=== PATIENT | female | born 1995 | race Two or more races ===

== ENCOUNTER 2024-08-05 09:20 | Outpatient (REF) | payer MEDICAID, SELFPAY | END 2024-08-05 09:21 | disposition home or self-care (01) | LOC: HO.HHCL 09:20 | PROVIDERS: PCP Family Medicine; Visit Provider Family Medicine | DX: Z13.89 Encounter for screening for other disorder (principal) ==

== ENCOUNTER 2024-08-05 09:29 | Outpatient (REF) | payer MEDICAID, SELFPAY ==
[2024-08-05 11:46] LABS: Hematocrit 39.1 % (37.0-47.0); Hemoglobin 12.5 g/dl (12.0-16.0); Mean Corpuscular Hemoglobin 27.8 pg (27.0-33.0); Mean Corpuscular Volume 86.9 fL (80.0-98.0); Mean Platelet Volume 10.8 fL (9.4-12.3); Platelet Count 324 X10*3/uL (160-400); Red Cell Distribution Width 13.9 % (11.0-16.0); White Blood Count 10.1 X10*3/uL (4.8-10.8)
[2024-08-05 12:08] LABS: Estimated Average Glucose 105 mg/dL; Hemoglobin A1c % 5.3 % (<6.0)
[2024-08-05 12:24] LABS: Alanine Aminotransferase 26 U/L (0-31); Albumin Level 4.1 g/dL (3.5-5.0); Alkaline Phosphatase 74 U/L (39-117); Anion Gap 9 (12-20); Aspartate Amino Transferase 24 U/L (5-31); Bilirubin Direct 0.1 mg/dL (0.0-0.5); Bilirubin Total 0.3 mg/dL (0.0-1.0); Blood Urea Nitrogen 10 mg/dL (9-16); Calcium 9.5 mg/dL (8.4-10.2); Carbon Dioxide 29 mmol/L (22-29); Chloride 106 mmol/L (96-108); Cholesterol 160 mg/dL (<200); Estimated Glomerular Filt Rate > 60; Glucose Random 88 mg/dL (60-115); HDL Cholesterol 40 mg/dL (>40); LDL Cholesterol Calculated 106 mg/dL (<100); Sodium 140 mmol/L (135-145); Total Protein 7.7 g/dL (6.5-8.0); Triglycerides 70 mg/dL (<150)
[2024-08-05 12:32] LABS: HBS Num1 675.01 mIU/mL (0-7.99); HBc Num1 0.14 S/CO (0.00-0.79); HBsAGNum1 0.37 S/CO (0.00-0.99); HIV AB/AG Nonreactive (Nonreactive); HIV Num 1 0.07 S/CO (0.00-0.99); Hepatitis B Core Antibody Nonreactive (Nonreactive); Hepatitis B Surface Antigen Negative (Negative); ~HepC Num1 0.19 S/CO (0.00-0.79); ~Hepatitis B Surface Antibody REACTIVE (Nonreactive); ~Hepatitis C Antibody Nonreactive (Nonreactive)
[2024-08-05 12:44] LABS: Free T4 (Free Thyroxine) 0.89 ng/dL (0.71-1.85); Thyroid Stimulating Hormone 1.18 uIU/mL (0.32-4.0); Vitamin D 25-OH Total 25.9 ng/mL (>30)
[2024-08-05 13:54] LABS: CT PCR NOT DETECTED (Not Detect.); NG PCR NOT DETECTED (Not Detect.)
[2024-08-06 05:28] LABS: Hepatitis A Antibody IgG REACTIVE (Nonreactive); ~Hepatitis A Antibody IgG 8.73 S/CO (0.00-0.99)
[2024-08-06 11:23] LABS: Mumps Virus IgG Antibody <9.00 AU/mL
[2024-08-06 14:28] LABS: RPR Rapid Plasma Reagin NON-REACTIVE (NON-REACTIVE)
[2024-08-06 16:09] LABS: Varicella IgG Antibody 1.28 S/CO
[2024-08-08 09:12] LABS: TS Negative Control Passed; TS Panel A 0; TS Panel B 1; TS Positive Control Passed; TSpotTB Negative (Negative)
== END 2024-08-05 09:30 | disposition home or self-care (01) ==
LOC: HO.HHCL 09:29
PROVIDERS: Visit Provider Family Medicine
DX: Z00.00 Encounter for general adult medical examination without abnormal findings (principal); Z68.41 Body mass index [BMI] 40.0-44.9, adult; E28.2 Polycystic ovarian syndrome
CPT/HCPCS: 80048; 80061; 80076; 82306; 83036; 84439; 84443; 85027; 86481; 86592; 86704; 86706; 86708; 86735; 86762; 86765; 86787; 86803; 87340; 87389; 87491; 87591

== ENCOUNTER 2024-11-05 08:19 | Outpatient (AMB) | payer OTHER, SELFPAY ==
--- OUTSIDE RECORDS SUMMARY | 2024-08-27 09:30 | XMS_ITS ---
Author Organization [facility] Address [address] [place] [phone] Care Team Providers Care Speech Correction Assistant Name Role Phone NO, PCP Primary Care Provider SHS, CHW Unavailable [phone] SHS, Nursing Unavailable [phone] REASON FOR VISIT Phone: Intake Encounters Encounter Location Date Provider Diagnosis [address] [address] 08/27/2024 Nursing [facility] Plan Of Treatment No Information Progress Notes * Corrina BIGGS y CDOB:1995 (29 yo F)Acc No.[id number]:08/27/2024 Progress Notes Patient: Kathy Indu SANDHU Provider: Mohsen LACEY :1995 A ge:28 Y S ex:Female Date:08/27/2024 Address:[address] [place] [address] Nemesio Johnston [place]-[id number] Pcp:PCP NO Subjective: * Chief Complaints: * 1 . Phone: Intake. * Medical History: Objective: * Vitals: Assessment: Plan: * Treatment: * Images: Billing Information: * Visit Code: * Procedure Codes: * Electronic signature of Bk [facility] on 11/05/2024 at 08:43 AM EDT Sign off status: Pending * Provider: Mohsen coulter [facility] Date: 08/27/2024 Generated for Zach capps/Gabe/eTransmmeron on: 0 11/05/2024 08:43 AM EDT
--- OUTSIDE RECORDS SUMMARY | 2024-11-05 08:44 | XMS_ITS | Clinical Summary ---
Author Organization [employer] Address [address] [place] [address] Care Team Providers Care Security Assurance Specialist Name Role Phone Marleni Hunt DO Primary Care Provider Allergies No known active allergies Medications metFORMIN XR (Glucophage-XR) 500 MG 24 hr tablet Take 1 tablet (500 mg) by mouth with evening meal. Do not crush, chew, or split. 90 tablet 3 08/02/2024 Active multivitamin () 27-0.8 MG tablet Take 1 tablet by mouth Once per day. 90 tablet 3 08/02/2024 Active cholecalciferol (Vitamin D-3) 50 MCG (2000 UT) capsule Take 1 capsule (50 mcg) by mouth Once per day. 90 capsule 3 08/10/2024 Active Active Problems Problem Noted Date Diagnosed Date Polycystic ovarian syndrome 08/02/2024 BMI 40.0-44.9, adult 08/02/2024 Encounters Date Type Department Care Team Description 08/06/2024 Refill [facility] [address] [place] [address] Marleni Hunt DO from Last 3 Months Family History Medical History Relation Name Comments Hypertension Father Muscle cancer Father Asthma Maternal Grandmother No Known Problems Mother Relation Name Status Comments Father Maternal Grandmother Mother Social History Tobacco Use Types Packs/Day Years Used Date Smoking Tobacco: Never Smokeless Tobacco: Never Tobacco Cessation:Counseling Given: Not Answered Alcohol Use Standard Drinks/Week Comments Never 0 (1 standard drink = 0.6 oz pur e alcohol) Depression Answer Date Recorded Patient Health Questionnaire-9 Score 3 08/02/2024 Patient Health Questionnaire-9 Score 3 08/02/2024 Last PHQ-9: Questionnaire Data Not on file 0 08/02/2024 Housing Stability Answer Date Recorded What is your housing situation today? I have housing today, but I am worried about losing housing in the future 08/02/[address] you li ve. Do you have problems with any of the following? None of the above 08/02/2024 Food Insecurity Answer Date Recorded Within the past 12 months, y ou worried that your food would run out before you got money to buy more: Sometimes True 2024 Within the past 12 months,th e food you bought just didn't last and you didn't have enough money to get more: Never True 08/02/2024 Transportation Answer Date Recorded In the past 12 months, has l ack of transportation kept you from medical appts, meetings, work or from getting things needed for daily living? No 07/21/2024 Utilities Answer Date Recorded In the past 12 months, has t he electric, gas, oil or water company threatened to shut off services in your home? No 07/21/2024 Depression Answer Date Recorded Patient Health Questionnaire-2 Score 0 08/02/2024 Internet Access Answer Date Recorded Internet Access Q1 Yes 07/21/2024 Internet Access Q2 Not on file 07/21/2024 Comments No Sex and Gender Information Value Date Recorded Sex Assigned at Unknown 08/02/2024 8:36 AM EDT Legal Sex Female 2:04 PM EDT Gender Identity Choose not to disclose 8:36 AM EDT Sexual Orientation Don't know 08/02/2024 8: 36 AM EDT Last Filed Vital Signs Vital Sign Reading Time Taken Comments Blood Pressure 118/70 08/02/2024 11:39 AM EDT Pulse 88 08/02/2024 11:39 AM EDT Temperature 36.8 C (98.3 F) 08/02/2024 11:39 AM EDT Respiratory Rate 19 08/02/2024 11:39 AM EDT Oxygen Saturation 99% 08/02/2024 11:39 AM EDT Inhaled Oxygen Concentration - - Weight 110 kg (242 lb) 08/02/2024 11:39 AM EDT Height 162.6 cm (5' 4 ) 08/02/2024 11:39 AM EDT Body Mass Index 41.54 08/02/2024 11:39 AM EDT Plan of Treatment Health Maintenance Due Date Last Done Comments Alcohol/Substance Use Screening 2008 Family Planning (PISQ) 09/18/2011 HPV Vaccines (1 - 3-dose series) 09/18/2011 DTaP/Tdap/Td Vaccines (1 - Tdap) 09/18/2015 Hepatitis B Vaccines (1 of 3 - 19+ 3-dose series) 09/18/2015 Pap Smear 2017 COVID-19 Vaccine (1 - 2023-2 5 season) 2024 Influenza Vaccine (#1) 2024 Depression Screening 08/02/2025 08/02/2024, 08/02/2024 Disability Screening 08/02/2025 08/02/2024 SDOH Screening 08/02/2025 08/02/2024 Tobacco Screening 08/02/2025 08/02/2024 Lipid Panel 08/05/2029 08/05/2024 Zoster Vaccines (1 of 2) 2046 RSV Patients and Patients Aged 60 years or older (1 - 1-dose 75+ series) 09/18/2071 HIV Screening Completed 08/05/2024 Hepatitis C Screening Completed 08/05/2024 HIB Vaccines Aged Out No longer eligi ble based on patient's age to complete this topic Hepatitis A Vaccines Aged Out No long er eligible based on patient's age to complete this topic IPV Vaccines Aged Out No longer eligi ble based on patient's age to complete this topic Meningococcal B Vaccine Aged Out No l onger eligible based on patient's age to complete this topic Meningococcal Vaccine Aged Out No dennys jewell eligible based on patient's age to complete this topic Pneumococcal Vaccine: Pediatrics (0 to 5 Years) and At-Risk Patients (6 to 49) Years Aged Out No longer eligible b ased on patient's age to complete this topic RSV under 20 months Aged Out No longe r eligible based on patient's age to complete this topic Rotavirus Vaccines Aged Out No longer eligible based on patient's age to complete this topic Procedures Procedure Name Priority Date/Time Associated Diagnosis Comments T-SPOT(R).TB Routine 08/05/2024 9:33 AM EDT Routine history and physical examination of adult Polycystic ovarian syndrome BMI 40.0-44.9, adult ([facility]) HEPATITIS B CORE AB TOTAL Routine 08/05/2024 9:33 AM EDT Routine history and physical examination of adult Polycystic ovarian syndrome BMI 40.0-44.9, adult (CMS/HCC) HEPATITIS A ANTIBODY, TOTAL Routine 08/05/2024 9:33 AM EDT Routine history and physical examination of adult Polycystic ovarian syndrome BMI 40.0-44.9, adult (CMS/HCC) HEPATITIS B SURFACE ANTIBODY, QUALITATIVE Routine 08/05/2024 9:33 AM EDT Routine history and physical examination of adult Polycystic ovarian syndrome BMI 40.0-44.9, adult (CMS/HCC) RPR (MONITOR) W/REFL TITER Routine 08/05/2024 9:33 AM EDT Routine history and physical examination of adult Polycystic ovarian syndrome BMI 40.0-44.9, adult (CMS/HCC) HEPATITIS C AB W/REFL TO HCV RNA, QN, PCR Routine 08/05/2024 9:33 AM EDT Routine history and physical examination of adult Polycystic ovarian syndrome BMI 40.0-44.9, adult (CMS/HCC) HIV 1/2 ANTIGEN/ANTIBODY, FOURTH GENERATION W/RFL Routine 08/05/2024 9:33 AM EDT Routine history and physical examination of adult Polycystic ovarian syndrome BMI 40.0-44.9, adult (CMS/HCC) HEPATITIS B SURFACE ANTIGEN, EIA Routine 08/05/2024 9:33 AM EDT Routine history and physical examination of adult Polycystic ovarian syndrome BMI 40.0-44.9, adult (CMS/HCC) MEASLES, MUMPS, AND RUBELLA (MMR) AB (IGG) PANEL, IMMUNE STATUS Routine 08/05/2024 9:33 AM EDT Routine history and physical examination of adult Polycystic ovarian syndrome BMI 40.0-44.9, adult (CMS/HCC) VARICELLA ZOSTER ANTIBODY, IGG Routine 08/05/2024 9:33 AM EDT Routine history and physical examination of adult Polycystic ovarian syndrome BMI 40.0-44.9, adult (CMS/[facility]) BASIC METABOLIC PANEL Routine 08/05/2024 9:33 AM EDT Routine history and physical examination of adult Polycystic ovarian syndrome BMI 40.0-44.9, adult (CMS/HCC) CBC Routine 08/05/2024 9:33 AM EDT Routine history and physical examination of adult Polycystic ovarian syndrome BMI 40.0-44.9, adult (CMS/HCC) HEMOGLOBIN A1C Routine 08/05/2024 9:33 AM EDT Routine history and physical examination of adult Polycystic ovarian syndrome BMI 40.0-44.9, adult (CMS/[facility]) HEPATIC FUNCTION PANEL Routine 08/05/2024 9:33 AM EDT Routine history and physical examination of adult Polycystic ovarian syndrome BMI 40.0-44.9, adult (CMS/[facility]) VITAMIN D,25-OH,TOTAL,IA Routine 08/05/2024 9:33 AM EDT Routine history and physical examination of adult Polycystic ovarian syndrome BMI 40.0-44.9, adult ([facility]) TSH Routine 08/05/2024 9:33 AM EDT Routine history and physical examination of adult Polycystic ovarian syndrome BMI 40.0-44.9, adult (CMS/[facility]) LIPID PANEL, STANDARD Routine 08/05/2024 9:33 AM EDT Routine history and physical examination of adult Polycystic ovarian syndrome BMI 40.0-44.9, adult (CMS/HCC) T4, FREE Routine 08/05/2024 9:33 AM EDT Routine history and physical examination of adult Polycystic ovarian syndrome BMI 40.0-44.9, adult (CMS/HCC) CHLAMYDIA/N. GONORRHOEAE RNA, TMA, UROGENITAL Routine 08/05/2024 9:33 AM EDT Routine history and physical examination of adult Polycystic ovarian syndrome BMI 40.0-44.9, adult ([facility]) from Last 3 Months Results * (ABNORMAL) Vitamin D, 25-Hydroxy, Total, Immunoassay (08/05/2024 9:33 AM EDT) Vitamin D 25-OH Total 25.9(L) >30 ng/mL [facility] Comment: Health Based Reference Values*< 20 ng/mL Xebgjypur33-96 ng/mL Insufficient> 30 ng/mL Sufficient*Jessica BLANCO. N Engl J Med. 2007;357:266-280There is no well-established upper level of normal vitamin Dlevels. Some laboratories use 50 ng/mL as an upper limit ofnormal. However, toxicity is patient-dependent and may occurat any level. Careful correlation with the patient'spresentation is necessary and, if there is concern forvitamin D toxicity, treatment should be consideredirrespective of the serum level.Care must be taken in interpreting Vitamin D results fromdifferent laboratories and methodologies. Published datademonstrated that results from patients undergoinghemodialysis may show a negative bias when tested withvarious automated 25-OH vitamin D assays when compared toLC-MS/MS.When testing samples from patients whose predominant form ofVitamin D is Vitamin D2, such as patients receiving VitaminD2 supplementation, results that are subtherapeutic shouldbe confirmed with another method such as LC-MS/MS. Blood Venous blood specimen / Unknown 08/05/2024 9:33 AM EDT 08/05/2024 11:32 AM EDT us Marleni Hunt DO LAB BLOOD ORDERABLES Final R esult [facility] [address], [place] [phone] * T-SPOT??.TB (08/05/2024 9:33 AM EDT) T Spot TB Negative Negative [facility] Comment:A negative test resu lt does not exclude the possibilityof exposure to or infection with Mycobacteriumtuberculosis (M. tuberculosis). Patients with recentexposure to TB infected individuals exhibiting anegative T-SPOT.TB result should be considered forretesting within 6 weeks or if other relevant clinicalsymptoms indicate. Results from T-SPOT.TB testing mustbe used in conjunction with each individual'sepidemiological history, current medical status,and results of other diagnostic evaluations.The T-SPOT.TB test is qualitative and results arereported as positive, borderline, or negative, giventhat the test controls perform as expected. In linewith the Centers for Disease Control and Prevention's2010 recommendation to report quantitative measurementsalongside the qualitative result, the laboratoryprovides spot counts for informational purposes only.The T-SPOT.TB test should not be interpreted as aquantitative test. TS PANEL A 0 [facility] TS PANEL B 1 [facility] Negative Control Passed [facility] Positive Control Passed [facility] Comment:For additional infor rajeev, please refer tohttp://education.GLAMSQUAD/faq/JAU926(This link is being provided for informational/educational purposes only.)THIS TEST WAS PERFORMED AT:[employer] [id number] [place] [phone] GARDUNO MD,PHD 08/05/2024 9:33 AM EDT 08/05/2024 11:32 AM EDT Marleni Hunt DO LAB BLOOD ORDERABLES Final R esult [facility] [address] [place] [phone] * (ABNORMAL) Measles, Mumps, and Rubella (MMR) Antibodies??(IgG) Panel, Immune Status (08/05/2024 9:33 AM EDT) [facility] Mumps Virus IgG Antibody <9.00(A) AU/mL [facility] Comment:AU/mL Interpretation ------- <9.00 Not consistent with immunity9.00-10.99 Equivocal>10.99 Consistent with immunityThe presence of mumps IgG antibody suggests immunizationor past or current infection with mumps virus. Rubella IgG Antibody 18.60 Index [facility] Comment:Index Interpretation ----- <0.90 Not consistent with immunity 0.90-0.99 Equivocal > or = 1.00 Consistent with immunityThe presence of rubella IgG antibody suggestsimmunization or past or current infection withrubella virus.THIS TEST WAS PERFORMED AT:[employer] [place] [phone] PETIT MD Rubeola IgG (Measles) 90.80 AU/mL [facility] Comment:AU/mL Interpretation ----- <13.50 Not consistent with wawlgmwb69.50-16.49 Equivocal>16.49 Consistent with immunityThe presence of measles IgG suggests immunization orpast or current infection with measles virus.For additional information, please refer tohttp://education.[employer]andy/faq/LCK519(This link is being provided for informational/educational purposes only.) Blood Venous blood specimen / Unknown 08/05/2024 9:33 AM EDT 08/05/2024 11:27 AM EDT Marleni Hunt DO LAB BLOOD ORDERABLES Final R esult [facility] [address] [place] [phone] * Hepatitis C Antibody with Reflex to HCV, RNA, Quantitative, Real-Time PCR (08/05/2024 9:33 AM EDT) Hepatitis C Antibody Nonreactive Nonreactive [facility] Comment:Antibodies to HCV no t detected; does not exclude early acuteHCV infection. Blood Venous blood specimen / Unknown 08/05/2024 9:33 AM EDT 08/05/2024 11:27 AM EDT Marleni Hunt [employer] LAB BLOOD ORDERABLES Final R esult Performing Organization Address City/[facility]/ZIP Co de Phone Number [facility] [address] [place] [phone] * Hepatitis A Antibody, Total (08/05/2024 9:33 AM EDT) Hepatitis A Antibody IgG REACTIVE Nonreactive [facility] Comment:The presence of IgG anti-HAV implies past HAV infection(recent or distant) or vaccination against HAV. Blood Venous blood specimen / Unknown 08/05/2024 9:33 AM EDT 08/05/2024 11:27 AM EDT Marleni Hunt [employer] LAB BLOOD ORDERABLES Final R esult Performing Organization Address [facility] Co de Phone Number [facility] [address] [place] [phone] * Chlamydia/N. Gonorrhoeae RNA, TMA, Urogenitial (08/05/2024 9:33 AM EDT) CT PCR NOT DETECTED Not Detect. [facility] Comment:A not detected test result does not exclude the possibilityof infection because test results can be affected byimproper specimen collection, concurrent antibiotic therapy,or the number of organisms in the specimen which may bebelow the sensitivity of the test. As with many diagnostictests, results from the Xpert CT/NG assay should beinterpreted in conjunction with other laboratory andclinical data available to the clinician.Xpert CT/NG performance has not been evaluated in patientsless than 14 years of age. The assay should not be used forthe evaluationof suspected sexual abuse or for other medico-legalindications. Additional testing is recommended in anycircumstance when false positive or false negative resultscould lead to adverse medical, social or psychologicalconsequences. NG PCR NOT DETECTED Not Detect. [facility] Comment:A not detected test result does not exclude the possibilityof infection because test results can be affected byimproper specimen collection, concurrent antibiotic therapy,or the number of organisms in the specimen which may bebelow the sensitivity of the test. As with many diagnostictests, results from the Xpert CT/NG assay should beinterpreted in conjunction with other laboratory andclinical data available to the clinician.Xpert CT/NG performance has not been evaluated in patientsless than 14 years of age. The assay should not be used forthe evaluationof suspected sexual abuse or for other medico-legalindications. Additional testing is recommended in anycircumstance when false positive or false negative resultscould lead to adverse medical, social or psychologicalconsequences. Urine Urethral structure / Unknown 08/05/2024 9:33 AM EDT 08/05/2024 11:13 AM EDT Narrative [facility] - 08/05/2024 1:54 PM EDT Urine Marleni Hunt DO LAB MICROBIOLOGY - GENERAL O RDERABLES Final Result Performing Organization Address [facility] Co de Phone Number [facility] [address] [place] [phone] * Hepatitis B surface antigen, EIA (08/05/2024 9:33 AM EDT) Hepatitis B Surface Ag Negative Negative [facility] Blood Venous blood specimen / Unknown 08/05/2024 9:33 AM EDT 08/05/2024 11:27 AM EDT Marleni Hunt DO LAB BLOOD ORDERABLES Final R esult Performing Organization Address [facility]/ZIP Co de Phone Number [facility] [address] [place] [phone] * Hepatitis B Core Antibody, Total (08/05/2024 9:33 AM EDT) Hepatitis B Core Antibody Nonreactive Nonreactive [facility] Blood Venous blood specimen / Unknown 08/05/2024 9:33 AM EDT 08/05/2024 11:27 AM EDT us Marleni Hunt DO LAB BLOOD ORDERABLES Final R esult Performing Organization Address [facility]/ZIP Co de Phone Number [facility] [address] [place] [phone] * RPR (Monitor) with Reflex to??Titer (08/05/2024 9:33 AM EDT) RPR (Monitor) w/Refl Titer NON-REACTI VE NON-REACT CLAIRE [facility] Comment:THIS TEST WAS PERFOR MED AT:[employer] [place] [phone] PETIT MD Rapid Plasma Reagin Ab Titer TNP [facility] Blood Venous blood specimen / Unknown 08/05/2024 9:33 AM EDT 08/05/2024 11:27 AM EDT Marleni Hunt DO LAB BLOOD ORDERABLES Final R esult Performing Organization Address [facility] Co de Phone Number [facility] [address] [place] [phone] * HIV-1/2 Antigen and Antibodies, Fourth Generation, with Reflexes (08/05/2024 9:33 AM EDT) HIV AB/AG Nonreactive Nonreactive [facility] Comment:HIV-1 p24 Ag and/or HIV-1/HIV-2 Ab not detected.A test result that is nonreactive does not exclude thepossibility of exposure to or infection with HIV-1 and/orHIV-2. Nonreactive results in this assay for individualswith prior exposure to HIV-1 and/or HIV-2 may be due toantigen and antibody levels that are below the limit ofdetection of this assay.The [employer] HIV Ag/Ab Combo assay result andsupplemental assay results should be interpreted inconjunction with the patient's clinical presentation,history and other laboratory results. If the results areinconsistent with clinical evidence, additional testing issuggested to confirm the result. Blood Venous blood specimen / Unknown 08/05/2024 9:33 AM EDT 08/05/2024 11:27 AM EDT Marleni Fuentesjefferyrosi LAB BLOOD ORDERABLES Final R esult Performing Organization Address [facility] Co de Phone Number [facility] [address] [place] [phone] * Hepatitis B Surface Antibody, Qualitative (08/05/2024 9:33 AM EDT) [facility] ~Hepatitis B Surface Antibody REACTIVE Nonreactive [facility] Comment:REACTIVE: > 11.99 mI U/mL Blood Venous blood specimen / Unknown 08/05/2024 9:33 AM EDT 08/05/2024 11:27 AM EDT Marleni Gilbert LAB BLOOD ORDERABLES Final R esult Performing Organization Address [facility] Co de Phone Number [facility] [address] [place] [phone] * CBC (08/05/2024 9:33 AM EDT) [facility] White Blood Count 10.1 4.8 - 10.8 X10*3/uL [facility] Red Blood Count 4.50 4.20 - 5.50 X10*6/uL [facility] Hemoglobin 12.5 12.0 - 16.0 g/dl [facility] Hematocrit 39.1 37.0 - 47.0 % [facility] Mean Corpuscular Volume 86.9 80.0 - 98.0 fL [facility] Mean Corpuscular Hemoglobin 27.8 27.0 - 33.0 pg [facility] Mean Corpuscular HGB Conc 32.0 31.0 - 35.0 g/dl [facility] Red Cell Distribution Width 13.9 11.0 - 16.0 % [facility] Platelet Count 324 160 - 400 X10*3/uL [facility] Mean Platelet Volume 10.8 9.4 - 12.3 fL [facility] NRBC Pct Auto 0.0 0.0 - 0.2 /100WBC [facility] NRBC Abs Auto 0.000 0.0 - 0.012 X10*3/uL [facility] Blood Venous blood specimen / Unknown 08/05/2024 9:33 AM EDT 08/05/2024 11:27 AM EDT Marleni Gilbert LAB BLOOD ORDERABLES Final R esult Performing Organization Address City/[facility] Co de Phone Number [facility] [address] [place] [phone] * Varicella zoster antibody, IgG (08/05/2024 9:33 AM EDT) Varicella IgG Antibody 1.28 S/CO [facility] Comment:Signal to Cut-off S/ CO Interpretation --------- <1.00 Negative - Antibody not detected > or = 1.00 Positive - Antibody detected A positive result indicates that the patient has antibody to VZV but does not differentiate between an active or past infection. The clinical diagnosis must be interpreted in conjunction with the clinical signs and symptoms of the patient. This assay reliably measures immunity due to previous infection but may not be sensitive enough to detect antibodies induced by vaccination. Thus, a negative result in a vaccinated individual does not necessarily indicate susceptibility to VZV infection. A more sensitive test for vaccination-induced immunity is Varicella Zoster Virus Antibody Immunity Screen, ACIF.THIS TEST WAS PERFORMED AT:[employer] [place] [phone] PETIT MD Blood Venous blood specimen / Unknown 08/05/2024 9:33 AM EDT 08/05/2024 11:27 AM EDT Marleni Hunt DO LAB BLOOD ORDERABLES Final R esult Performing Organization Address City/[facility]/ZIP Co de Phone Number [facility] [address] [place] [phone] * TSH (08/05/2024 9:33 AM EDT) Thyroid Stimulating Hormone 1.18 0.32 - 4.0 uIU/mL [facility] Comment:TSH 3rd Generation ( [facility]) Blood Venous blood specimen / Unknown 08/05/2024 9:33 AM EDT 08/05/2024 11:32 AM EDT Marleni Hunt DO LAB BLOOD ORDERABLES Final R esult Performing Organization Address [facility] Co de Phone Number [facility] [address] [place] [phone] * T4, Free (08/05/2024 9:33 AM EDT) Free T4 (Free Thyroxine) 0.89 0.71 - 1.85 ng/dL [facility] Blood Venous blood specimen / Unknown 08/05/2024 9:33 AM EDT 08/05/2024 11:32 AM EDT us Marleni Hunt DO LAB BLOOD ORDERABLES Final R esult Performing Organization Address [facility] Co de Phone Number [facility] [address] [place] [phone] * Hemoglobin A1c (08/05/2024 9:33 AM EDT) Hemoglobin A1c 5.3 <6.0 % [facility] Comment:Hemoglobin A1C Refer ence Range Adults: 4.8 - 6.0 % Non diabetic: < 6.0 % Goal: < 7.0 %Additional Action Suggested: > 8.0 %Note: Hemoglobin A1c results are invalid for patients with abnormal amounts of HbF. Blood transfusions may impact the HbA1c concentration in the patient sample. Estimated Average Glucose 105 mg/dL [facility] Comment:eAG = Estimated ave rage glucose which is %A1C expressed asaverage glucose, using the formula of the [id number] Glucose study (ADAG), Diabetes Care, Vol.31,#8,Oct. 2007 Blood Venous blood specimen / Unknown 08/05/2024 9:33 AM EDT 08/05/2024 11:27 AM EDT Marleni Gilbert LAB BLOOD ORDERABLES Final R esult Performing Organization Address City/[facility]/ZIP Co de Phone Number [facility] [address] [place] [address] [phone] * Hepatic Function Panel (08/05/2024 9:33 AM EDT) Bilirubin, Total 0.3 0.0 - 1.0 mg/dL [facility] Bilirubin, Direct 0.1 0.0 - 0.5 mg/dL [facility] Aspartate Amino Transferase 24 5 - 31 U/L [facility] Alanine Aminotransferase 26 0 - 31 U/L [facility] Total Protein 7.7 6.5 - 8.0 g/dL [facility] Albumin Level 4.1 3.5 - 5.0 g/dL [facility] Alkaline Phosphatase 74 39 - 117 U/L [facility] Blood Venous blood specimen / Unknown 08/05/2024 9:33 AM EDT 08/05/2024 11:32 AM EDT Marleni Gilbert DO LAB BLOOD ORDERABLES Final R esult Performing Organization Address City/[facility]/ZIP Co de Phone Number [facility] [address] [place] [address] [phone] * (ABNORMAL) Lipid Panel, Standard (08/05/2024 9:33 AM EDT) Triglycerides 70 <150 mg/dL [facility] Comment:Desirable Triglyceri de: less than 150 mg/dLBorderline High Triglyceride 150-199 mg/dLHigh Triglyceride: 200-499 mg/dLVery High Triglyceride: greater than or equal to 5OO mg/dL Cholesterol 160 <200 mg/dL [facility] Comment:Desirable Cholestero l: less than 200 mg/dLBorderline High Cholesterol: 200-239 mg/dLHigh Cholesterol: greater than 239 mg/dL LDL Cholesterol Calculated 106(H) <100 mg/dL [facility] Comment:Desirable LDL: less than 100 mg/dLNear Optimal/Above Optimal LDL: 110- 129 mg/dLBorderline High LDL: 130-159 mg/dLHigh LDL: 160-189 mg/dLVery High LDL: greater than or equal to 190 mg/dL HDL Cholesterol 40(L) >40 mg/dL [facility] Comment:Desirable HDL: great er than 40 mg/dL Note: This HDL assay may give artificially low results in patients with liver disease. Blood Venous blood specimen / Unknown 08/05/2024 9:33 AM EDT 08/05/2024 11:32 AM EDT us Marleni Hunt DO LAB BLOOD ORDERABLES Final R esult [facility] [address] [place] [phone] * (ABNORMAL) Basic Metabolic Panel (08/05/2024 9:33 AM EDT) Sodium 140 135 - 145 mmol/L [facility] Potassium 4.0 3.3 - 5.1 mmol/L [facility] Chloride 106 96 - 108 mmol/L [facility] Carbon Dioxide 29 22 - 29 mmol/L [facility] Anion Gap 9(L) 12 - 20 [facility] Urea Nitrogen (BUN) 10 9 - 16 mg/dL [facility] Creatinine, Serum 0.67 0.5 - 1.4 mg/dL [facility] Estimated Glomerular Filt Rate >60 [facility] Comment:Chronic Kidney Disea se: Estimated GFR < 60 mL/min/[id number] Kidney Disease: Estimated GFR < 15 mL/min/1.73m2 Glucose 88 60 - 115 mg/dL [facility] Calcium 9.5 8.4 - 10.2 mg/dL [facility] Blood Venous blood specimen / Unknown 08/05/2024 9:33 AM EDT 08/05/2024 11:32 AM EDT us Marleni Hunt DO LAB BLOOD ORDERABLES Final R esult [facility] [address] [place] [phone] [phone] from Last 3 Months Insurance [facility] Care Teams Security Assurance Specialist Relationship Specialty Start Date End Date Marleni Hunt DO [address] [place] [phone] PCP - General Family Medicine 08/02/24
--- OUTSIDE RECORDS SUMMARY | 2024-11-05 08:44 | XMS_ITS | Patient Health Record ---
Author Organization [facility] Address [address] [place] [address] Care Team Providers Care Real Estate Professional Name Role Phone NO, PCP Primary Care Provider [phone] [facility] Unavailable [phone] [facility], Nursing Unavailable [phone] Reason For Referral No Information Plan Of Treatment No Information Insurance Providers Payer Name Payer Address Payer Phone Subscriber Number Group Number Insured Name Patient Relationship to Insured Coverage Start Date Coverage End Date [place] Medicaid Limited [address] [place], [place] [id number] Indu Reeys Self - patient is the insured 5
--- NOTE | 2024-11-05 09:01 | MHC.OFFVISWM ---
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 *COURT MAGISTRATE* Bulk Mail Technician Required: Yes Bulk Mail Technician Services: Bulk Mail Technician Present Information Interpreted: clinical only Allergies No Known Allergies Allergy (Verified 11/05/24 09:04) Medication List - Last Reconciled 11/05/24 by Al Deleon MD metformin 500 mg PO DAILY PNV 11-iron fum-folic acid-om3 28 mg iron-1 mg -200 mg caps PO [VITAMIN D PO] HPI HPI 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 *COURT MAGISTRATE*: Details: Start time: 9.09am, End time: 10.04am ?I spent 55 minutes speaking with the patient on the phone plus an additional 5 minutes reviewing and updating records for a total of 60 minutes HPI Comments Details: Previous weight loss efforts: exercise and self diet Wakes up: 7am, Sleeps: 10pm Breakfast: 9am (fruits, potatoes with thibodeaux) Lunch: 4pm (rice, meat, banana, salad) Dinner: 8.30pm (eggs, bananas, meat) snacks: 12pm (cracker, cookie, muffin), 9pm (fruits) Exercise: none Beverages: Coffee: (16oz/d with sugar), Tea: none, Soda: regular Coke (2-3/wk), Juice (1 glass per day), ETOH: none PFSH Medical History (Updated 11/05/24 @ 09:11 by Al Deleon MD) Back pain PCOS (polycystic ovarian syndrome) Morbid obesity Surgical History (Updated 10/27/24 @ 09:54 by Genevieve Milian CMA) Hx of dilation and curettage Family History (Updated 10/27/24 @ 09:55 by Genevieve Milian CMA) Mother No problems noted. Father Malignant neoplasm skin of leg Social History (Updated 10/27/24 @ 09:55 by Genevieve Milian CMA) Alcohol intake: never Patient Tobacco Use Status: Never used Tobacco Telehealth Telehealth Telehealth Platform: Telephone Location of provider rendering services: practice address Location of patient: address on file Patient Identification confirmed using: Name, : Yes Telehealth method: voice only Patient verbally consented to treatment: Yes Patient verbally consented to billing insurance company: Yes Patient informed of any privacy concerns related to visit: Yes Minutes spent on Phone/Video with Pt.: 60 Assessment & Plan Assessment & Plan (1) Morbid obesity: Code(s): E66.01 - Morbid (severe) obesity due to excess calories Category: Medical Plan: 1.? Plan for lap sleeve gastrectomy. If diaphragmatic or ventral hernias are present at time of surgery, these will be repaired laparoscopically as well. I emphasized the importance of close follow-up, adherence to instructions and good communication. The surgery does not replace the need to change your lifestlyle which is the cause of the obesity problem. The surgery provides the motivation to try again to change your lifestyle, it reduces the appetite and make the transition to a better lifestyle easier and doubles the amount of weight you would lose compared to doing the lifestyle change without the surgery. You will need to be on a liquid diet with protein shakes for 2 weeks before surgery to maximize weight loss and boost your nutritional status to recover better from surgery and also for the first two weeks after surgery to let the stomach heal before we introduce other foods. After the first 2 weeks we will introduce protein bars and soft foods like scrambled eggs, cottage cheese and yogurt and after the 6th week will introduce meat, fish and cooked vegetables in small amounts. Over time you should be able to eat everything in small amounts. Side effects like nausea, vomiting, heartburn or abdominal pain are not common in the practice unless you are not following in the practice. This operation requires lifetime commitment to following in our practice and communication with me. You will much less weight and experience side effects if you don?t communicate or not following in the practice. Complications are rare and in our practice is about 1/10 of the national average. However, you can develop bleeding that may require transfusion (hasn?t happened for year in the practice), you may from complications (we did not have any deaths in the practice) and infections. Infections are usually a result of breakdown in communication or not understanding or following directions correctly. They are difficult to treat, they can happen during the first 6 weeks, they may require to be in the hospital for weeks or even months, not being able to eat by mouth and you may have drains and surgeries to try and correct the issue. Other risks and complications include possible conversion to an open procedure, leaks, small bowel obstruction, blood clots, cardiac, or pulmonary complications, as chcf complications such as ulcers, insufficient weight loss and vitamin deficiencies. 2. Nutritional counseling. Start with one premade PREMIER protein (buy at [employer] or [employer]) shake (mix 4oz of Premier mixed with 4oz low fat unsweetened almond milk each) at 8am-10am, one protein bar (Fit Crunch protein bar, buy at [employer], or [employer]) at 11am-1pm, another premade PREMIER protein shake (mix 4oz of Premier mixed with 4oz low fat unsweetened almond milk each) at 2pm-4pm, dinner at 5pm (8 forks of protein and 8 forks of salad/vegetables) and another [employer] protein bar at 7pm-9pm.? So you do 2 protein shakes, 2 protein bars and one meal per day. Meal to include lean meat (beef, fish, pork, turkey, chicken), or greenlandic yogurt, or egg whites, or beans with a salad with olive oil and fruits (berries, pears, apples, kiwi). Avoid salt, breads, potatoes, rice, pasta, desserts. 3. Each shake would be drunk slowly, like coffee in a period of 2 hours. 4. Cut each bar in 4 pieces and eat each piece in 30min ?to make each bar last 2 hours. 5. I emphasized the importance of measuring accurately the food portion and measure it when serving the food in plate 6. The meal portions include 8 full-size forks of meat and 8 full-size forks of salad. You always eat the meat portion but you can replace up to 4 forks for salad/vegetables with rice, potatoes or pasta, or a fruit ?if you like. The less you do it the better weight loss will be. 7. One full-size fork is what it can be scooped on the fork without falling aside and not what can be bit with the fork. Use regular forks like those you find in a typical restaurant. 8.? Please buy the body composition scale we discussed and send me weight measurements as soon as possible and then once a week. Always include your diet and exercise plan. 9. Start walking outside daily, tracking calories with a goal of 300 calories per day, daily. Goal is to burn 2000 calories per week on exercise, which means either 300 calories daily, or 400 calories 5 days per week, or 500 calories 4 days per week, or 650 calories 3 days per week. 10. The best choice would be to purchase a stationary bike at home that can track calories. Let me know if you do so I can give you an exercise plan. 11.?It is important of avoiding and for at least 18 months postoperatively and has been discussed at the infosession. 12. Goal is to lose at least 1.5-2lbs per week 13. Goal to lose 10% of your weight before surgery, which is about 24lbs. Ultimate weight goal: 214lbs before surgery 14. Please follow the diet plan exactly without any change. If you don't like something about the plan or you feel hungry you need to communicate with me so I can help you revise the plan. You should not change the plan yourself 15. To be scheduled for EGD to assess the stomach's anatomy. The possibility of biopsies was discussed. Patient needs to avoid use of NSAIDs and aspirin for 1 week prior to EGD. You must be on liquids only the day before your endoscopy. Risks of perforation and bleeding was discussed with the patient. This will be an outpatient procedure with IV sedation. 16. Please do the following test: Check your heart rate at rest (at your sleep). Walk for exactly one mile distance as fast as you can and check your heart rate again as soon as you complete the mile walk. Text me the heart rate at rest and after the walk and the time in minutes and seconds that took you to complete the mile walk. You can use your smartphone's stopwatch to track accurately the time it took to walk the mile. Orders: Orders Complete Blood Count Auto Diff Today E28.2 - Polycystic ovarian syndrome, E66.01 - Morbid (severe) obesity due to excess calories IRON PROFILE Today E28.2 - Polycystic ovarian syndrome, E66.01 - Morbid (severe) obesity due to excess calories Comprehensive Met. Panel Today E28.2 - Polycystic ovarian syndrome, E66.01 - Morbid (severe) obesity due to excess calories Vitamin B12 and Folate Today E28.2 - Polycystic ovarian syndrome, E66.01 - Morbid (severe) obesity due to excess calories TSH reflex Free T4 Today E28.2 - Polycystic ovarian syndrome, E66.01 - Morbid (severe) obesity due to excess calories XR chest 2V Today E28.2 - Polycystic ovarian syndrome, E66.01 - Morbid (severe) obesity due to excess calories ECG 12 lead EKG Today E28.2 - Polycystic ovarian syndrome, E66.01 - Morbid (severe) obesity due to excess calories FL upper GI w air Today E28.2 - Polycystic ovarian syndrome, E66.01 - Morbid (severe) obesity due to excess calories Insulin Today E28.2 - Polycystic ovarian syndrome, E66.01 - Morbid (severe) obesity due to excess calories Hemoglobin A1c Today E28.2 - Polycystic ovarian syndrome, E66.01 - Morbid (severe) obesity due to excess calories H Pylori Breath Test Today E28.2 - Polycystic ovarian syndrome, E66.01 - Morbid (severe) obesity due to excess calories Lipid Panel Today E28.2 - Polycystic ovarian syndrome, E66.01 - Morbid (severe) obesity due to excess calories Zinc Today E28.2 - Polycystic ovarian syndrome, E66.01 - Morbid (severe) obesity due to excess calories C Reactive Protein Today E28.2 - Polycystic ovarian syndrome, E66.01 - Morbid (severe) obesity due to excess calories Vitamin B1 Today E28.2 - Polycystic ovarian syndrome, E66.01 - Morbid (severe) obesity due to excess calories Vitamin A Today E28.2 - Polycystic ovarian syndrome, E66.01 - Morbid (severe) obesity due to excess calories Ferritin Today E28.2 - Polycystic ovarian syndrome, E66.01 - Morbid (severe) obesity due to excess calories Vitamin D 25-OH Total Today E28.2 - Polycystic ovarian syndrome, E66.01 - Morbid (severe) obesity due to excess calories US abdomen comp w elastography Today E28.2 - Polycystic ovarian syndrome, E66.01 - Morbid (severe) obesity due to excess calories Referrals Behavioral Health Referral E28.2 - Polycystic ovarian syndrome, E66.01 - Morbid (severe) obesity due to excess calories Nutrition/Dietitian Referral E28.2 - Polycystic ovarian syndrome, E66.01 - Morbid (severe) obesity due to excess calories
[2024-11-05 09:28] VITALS: BMI 40.8
== END 2024-11-05 10:04 | disposition home or self-care (01) ==
LOC: HO.HBS 08:19
PROVIDERS: PCP Family Medicine; Visit Provider Surgery
DX: E66.01 Morbid (severe) obesity due to excess calories (principal); Z68.41 Body mass index [BMI] 40.0-44.9, adult
CPT/HCPCS: 98011

== ENCOUNTER → 2024-11-05 08:19 | Outpatient (BNVA) | payer OTHER, SELFPAY | PROVIDERS: PCP Family Medicine; Visit Provider Surgery | DX: E66.01 Morbid (severe) obesity due to excess calories (principal); Z68.41 Body mass index [BMI] 40.0-44.9, adult; Z13.89 Encounter for screening for other disorder ==

== ENCOUNTER 2024-11-15 10:00 | Outpatient (REF) | payer OTHER, SELFPAY ==
--- OUTSIDE RECORDS SUMMARY | 2024-08-27 09:30 | XMS_ITS ---
Author Organization [facility] Address [address] [place] [phone] Care Team Providers Care Marsh Buggy Operator Name Role Phone NO, PCP Primary Care Provider SHS, CHW Unavailable [phone] SHS, Nursing Unavailable [phone] REASON FOR VISIT Phone: Intake Encounters Encounter Location Date Provider Diagnosis [address] [address] 08/27/2024 Nursing [facility] Plan Of Treatment No Information Progress Notes * Corrina BIGGS y CDOB:1995 (29 yo F)Acc No.[id number]:08/27/2024 Progress Notes Patient: Kathy Indu SANDHU Provider: Mohsen LACEY :1995 A ge:28 Y S ex:Female Date:08/27/2024 Address:[address] [place] [address] Nemesio Johnston [place]-[id number] Pcp:PCP NO Subjective: * Chief Complaints: * 1 . Phone: Intake. * Medical History: Objective: * Vitals: Assessment: Plan: * Treatment: * Images: Billing Information: * Visit Code: * Procedure Codes: * Electronic signature of Bk [facility] on 11/15/2024 at 12:32 PM EDT Sign off status: Pending * Provider: Mohsen coulter [facility] Date: 08/27/2024 Generated for Zach capps/Gabe/eTransmitting on: 11/15/2024 12:32 PM EDT
--- NOTE | ~2024-11-15 | XR_ITS ---
EXAMINATION: XR CHEST CLINICAL INFORMATION: E66.01 - Morbid (severe) obesity due to excess calories COMPARISON: None available. TECHNIQUE: 2 views of the chest were obtained. FINDINGS: No significant abnormality is noted involving the heart, lungs, mediastinum, bony thorax or soft tissues. XR/XR chest 2V IMPRESSION: No acute disease Electronically signed by: Jovanny Love MD 11/15/2024 10:56 AM EDT
--- NOTE | 2024-11-15 10:14 | ECG_ITS ---
Test Reason : mor obs Blood Pressure : */* mmHG Vent. Rate : 64 BPM Atrial Rate : 64 BPM P-R Int : 156 ms QRS Dur : 78 ms QT Int : 406 ms P-R-T Axes : 59 33 34 degrees QTcB Int : 418 ms Normal sinus rhythm Normal ECG No previous ECGs available Referred By: Al Deleon Electronically Signed By: STACEY PARK
[2024-11-15 10:20] LABS: MANUAL DIFF FLAG NO
[2024-11-15 10:47] LABS: Hematocrit 37.6 % (37.0-47.0); Hemoglobin 12.2 g/dl (12.0-16.0); Imm Gran Abs Auto 0.02 X10*3/uL (0.00-0.03); Imm Gran Pct Auto 0.3 % (0.0-0.4); Lymphocytes Absolute Auto 2.9 X10*3/uL (1.2-4.9); Mean Corpuscular HGB Conc 32.4 g/dl (31.0-35.0); Mean Corpuscular Hemoglobin 27.9 pg (27.0-33.0); Mean Corpuscular Volume 86.0 fL (80.0-98.0); NRBC Abs Auto 0.000 X10*3/uL (0.0-0.012); NRBC Pct Auto 0.0 /100WBC (0.0-0.2); Platelet Count 309 X10*3/uL (160-400); Red Blood Count 4.37 X10*6/uL (4.20-5.50); White Blood Count 7.2 X10*3/uL (4.8-10.8)
[2024-11-15 10:55] LABS: Hemoglobin A1C 112.8652 umol/L; Total Hemoglobin (HGBA1C) 3208.0460 umol/L
[2024-11-15 11:28] LABS: Alanine Aminotransferase 34 U/L (0-31); Albumin Level 4.3 g/dL (3.5-5.0); Alkaline Phosphatase 60 U/L (39-117); Anion Gap 12 (12-20); Aspartate Amino Transferase 29 U/L (5-31); Blood Urea Nitrogen 12 mg/dL (9-16); Calcium 9.4 mg/dL (8.4-10.2); Carbon Dioxide 26 mmol/L (22-29); Chloride 105 mmol/L (96-108); Cholesterol 154 mg/dL (<200); Estimated Glomerular Filt Rate > 60; Ferritin 142 ng/mL (10-122); HDL Cholesterol 36 mg/dL (>40); Iron 100 mcg/dL (30-160); Percent Iron Saturation 37 % (15-50); Potassium 4.7 mmol/L (3.3-5.1); Sodium 138 mmol/L (135-145); Total Iron Binding Capacity 267 mcg/dL (228-428); Total Protein 7.9 g/dL (6.5-8.0); Triglycerides 73 mg/dL (<150); Unsaturated Iron Binding 167 ug/dL
[2024-11-15 11:44] LABS: Folate 12.8 ng/mL (> or = 4.0); Vitamin B12 168 pg/mL (200-900)
--- OUTSIDE RECORDS SUMMARY | 2024-11-15 12:32 | XMS_ITS | Clinical Summary ---
Author Organization [employer] Address [address] [place] [address] Care Team Providers Care Messenger Copy Name Role Phone Gilbert Marleni Primary Care Provider Allergies No known active allergies Medications metFORMIN XR (Glucophage-XR) 500 MG 24 hr tablet Take 1 tablet (500 mg) by mouth with evening meal. Do not crush, chew, or split. 90 tablet 3 08/02/2024 Active multivitamin () 27-0.8 MG tablet Take 1 tablet by mouth Once per day. 90 tablet 3 08/02/2024 Active cholecalciferol (Vitamin D-3) 50 MCG (1999 UT) capsule Take 1 capsule (50 mcg) by mouth Once per day. 90 capsule 3 08/10/2024 Active Active Problems Problem Noted Date Diagnosed Date Polycystic ovarian syndrome 08/02/2024 BMI 40.0-44.9, adult 08/02/2024 Encounters Date Type Department Care Team Description 11/15/2024 Orders Only GENERIC EXTERNAL DATA DEPARTMENT Provider, Generic External Data from Last 3 Months Family History Medical [...] Tobacco Screening 08/02/2025 08/02/2024 Lipid Panel 08/05/2029 11/15/2024, 08/05/2024 Zoster Vaccines (1 of 2) 2046 [...] Procedure Name Priority Date/Time Associated Diagnosis Comments XR CHEST 2 VIEWS Routine 11/15/2024 10:4 9 AM EDT VITAMIN B12/FOLATE, SERUM PANEL Routine 11/15/2024 10:19 AM EDT INSULIN Routine 11/15/2024 10:19 AM EDT TSH W/REFLEX TO FT4 Routine 11/15/2024 1 0:19 AM EDT VITAMIN D,25-OH,TOTAL,IA Routine 11/15/2024 10:19 AM EDT LIPID PANEL, STANDARD Routine 11/15/2024 10:19 AM EDT C-REACTIVE PROTEIN Routine 11/15/2024 10 :19 AM EDT FERRITIN Routine 11/15/2024 10:19 AM EDT IRON AND TOTAL IRON BINDING CAPACITY Routine 11/15/2024 10:19 AM EDT COMPREHENSIVE METABOLIC PANEL Routine 11/15/2024 10:19 AM EDT HEMOGLOBIN A1C Routine 11/15/2024 10:19 AM EDT CBC WITH AUTO DIFFERENTIAL Routine 11/15/2024 10:19 AM EDT HEPATITIS C AB W/REFL TO HCV RNA, [...] Recently Relevant to Health Maintenance Results * XR Chest 2 Views (11/15/2024 10:49 AM EDT) Anatomical Region Laterality Modality Chest Radiographic Dionna ging 11/15/2024 10:4 9 AM EDT Narrative 11/15/2024 10:58 AM EDT [address] [address] XRay Report Signed Patient: Indu Reyes MR#: [id number] : 1995 Acct:[id number] Age/Sex: 29 / F ADM Date: 11/15/24 Loc: [facility] Attending Dr: Al Deleon MD Ordering Physician: Al Deleon MD Date of Service: 11/15/24 Procedure(s): XR chest 2V Accession Number(s): [id number] cc: Marleni Hunt DO; Al Deleon MD Reason for Exam: E66.01 - Morbid (severe) obesity due to excess calories EXAMINATION: XR CHEST CLINICAL INFORMATION: E66.01 - Morbid (severe) obesity due to excess calories COMPARISON: None available. TECHNIQUE: 2 views of the chest were obtained. FINDINGS: No significant abnormality is noted involving the heart, lungs, mediastinum, bony thorax or soft tissues. 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 TECHNIQUE: 2 views of the chest were obtained. FINDINGS: No significant abnormality is noted involving the heart, lungs, mediastinum, bony thorax or soft tissues. 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 N [...] confirmed with another method such as LC-MS/MS. 11/15/2024 10:1 9 AM EDT 11/15/2024 10:19 AM EDT us Generic External Data Provider LAB BLOOD ORDERAB LES Final Result [facility] [address] [place] [phone] * (ABNORMAL) Vitamin B12 (Cobalamin) and Folate Panel, Serum (11/15/2024 10:19 AM EDT) Vitamin B12 168(L) 200 - 900 pg/mL [facility] Comment:NORMAL 200-900 PG/ML INDETERMINATE 160-199 PG/ML DEFICIENT < 160 PG/ML Folate 12.8 > or = 4.0 ng/mL [facility] Comment:Reference Values:> o r = 4.0 ng/mL< 4.0 ng/mL suggests folate deficiency Methotrexate, aminopterin and folinic acid(leucovorin) are chemotherapeutic agents whose molecularstructures are similar to folate; therefore, the Architectfolate assay cannot be used for patients using these drugs. 11/15/2024 10:1 9 AM EDT 11/15/2024 10:19 AM EDT us Generic External Data Provider LAB BLOOD ORDERAB LES Final Result Performing Organization Address [facility] Co de Phone Number [facility] [address] [place] [phone] * TSH with Reflex to Free T4 (11/15/2024 10:19 AM EDT) TSH reflex Free T4 1.11 0.32 - 4.0 uIU/mL [facility] 11/15/2024 10:1 9 AM EDT 11/15/2024 10:19 AM EDT us Generic External Data Provider LAB BLOOD ORDERAB LES Final Result [facility] [address] [place] [phone] * CBC auto differential (11/15/2024 10:19 AM EDT) White Blood Count 7.2 4.8 - 10.8 X10*3/uL [facility] Red Blood Count 4.37 4.20 - 5.50 X10*6/uL [facility] Hemoglobin 12.2 12.0 - 16.0 g/dl [facility] Hematocrit 37.6 37.0 - 47.0 % [facility] Mean Corpuscular Volume 86.0 80.0 - 98.0 fL [facility] Mean Corpuscular Hemoglobin 27.9 27.0 - 33.0 pg [facility] Mean Corpuscular HGB Conc 32.4 31.0 - 35.0 g/dl [facility] Red Cell Distribution Width 13.4 11.0 - 16.0 % [facility] Platelet Count 309 160 - 400 X10*3/uL [facility] Mean Platelet Volume 11.0 9.4 - 12.3 fL [facility] Neutrophils Percent Auto 50.3 45 - 73 % [facility] Imm Gran Pct Auto 0.3 0.0 - 0.4 % [facility] Lymphocytes Percent Auto 39.9 20 - 40 % [facility] Monocytes Percent Auto 7.3 2 - 11 % [facility] Eosinophils Percent Auto 1.4 0 - 4 % [facility] Basophils Percent Auto 0.8 0 - 2 % [facility] NRBC Pct Auto 0.0 0.0 - 0.2 /100WBC [facility] Neutrophils Absolute Auto 3.6 2.0 - 8.3 x10*3/uL [facility] Imm Gran Abs Auto 0.02 0.00 - 0.03 X10*3/uL [facility] Lymphocytes Absolute Auto 2.9 1.2 - 4.9 X10*3/uL [facility] Monocytes Absolute Auto 0.5 0.1 - 1.2 X10*3/uL [facility] Eosinophils Absolute Auto 0.1 0.0 - 0.4 X10*3/uL [facility] Basophils Absolute Auto 0.1 0.0 - 0.2 X10*3/uL [facility] NRBC Abs Auto 0.000 0.0 - 0.012 X10*3/uL [facility] 11/15/2024 10:1 9 AM EDT 11/15/2024 10:19 AM EDT Generic External Data Provider LAB BLOOD ORDERAB LES Final Result Performing Organization Address [facility] Co de Phone Number [facility] [address] [place] [phone] * Iron And Total Iron Binding Capacity (11/15/2024 10:19 AM EDT) Iron 100 30 - 160 mcg/dL [facility] Total Iron Binding Capacity 267 228 - 428 mcg/dL [facility] Percent Iron Saturation 37 15 - 50 % [facility] Unsaturated Iron Binding 167 ug/dL [facility] 11/15/2024 10:1 9 AM EDT 11/15/2024 10:19 AM EDT Generic External Data Provider LAB BLOOD ORDERAB LES Final Result Performing Organization Address [facility] Co de Phone Number [facility] [address] [place] [phone] * Insulin (11/15/2024 10:19 AM EDT) Insulin 13 2 - 29 uU/mL [facility] Comment:This test was perfor med using the Liftopia chemiluminescentmethod. Values obtained from different assay methods cannot beused interchangeably. This insulin assay shows a possiblecross-reactivity with antibodies generated against insulin(immunoreactive insulin and some patients treated withbovine or porcine insulin). Insulin levels may be measuredlower in patients with insulin autoimmune syndrome orfamilial high pro-insulinemia. 11/15/2024 10:1 9 AM EDT 11/15/2024 10:19 AM EDT us Generic External Data Provider LAB BLOOD ORDERAB LES Final Result Performing Organization Address [facility] Co de Phone Number [facility] [address] [place] [phone] * (ABNORMAL) C-reactive Protein (11/15/2024 10:19 AM EDT) C Reactive Protein 1.48(H) < or = 0.50 mg/dL [facility] 11/15/2024 10:1 9 AM EDT 11/15/2024 10:19 AM EDT us Generic External Data Provider LAB BLOOD ORDERAB LES Final Result Performing Organization Address [facility] Phone Number [facility] [address] [place] [phone] * Hemoglobin A1c (11/15/2024 10:19 AM EDT) Hemoglobin A1c 5.4 <6.0 % [facility] Comment:Hemoglobin A1C Refer ence Range Adults: 4.8 - 6.0 % Non diabetic: < 6.0 % Goal: < 7.0 %Additional Action Suggested: > 8.0 %Note: Hemoglobin A1c results are invalid for patients with abnormal amounts of HbF. Blood transfusions may impact the HbA1c concentration in the patient sample. Estimated Average Glucose 108 mg/dL [facility] Comment:eAG = Estimated ave rage glucose which is %A1C expressed asaverage glucose, using the formula of the F4E-MevfmtwKwqabdf Glucose study (ADAG), Diabetes Care, Vol.31,#8,Oct. 2007 11/15/2024 10:1 9 AM EDT 11/15/2024 10:19 AM EDT us Generic External Data Provider LAB BLOOD ORDERAB LES Final Result Performing Organization Address [facility] Co de Phone Number [facility] [address] [place] [phone] * (ABNORMAL) Ferritin (11/15/2024 10:19 AM EDT) Ferritin 142(H) 10 - 122 ng/mL [facility] 11/15/2024 10:1 9 AM EDT 11/15/2024 10:19 AM EDT us Generic External Data Provider LAB BLOOD ORDERAB LES Final Result Performing Organization Address City/[facility]/ZIP Co de Phone Number [facility] [address] [place] [phone] * (ABNORMAL) Lipid Panel, Standard (11/15/2024 10:19 AM EDT) Triglycerides 73 <150 mg/dL [facility] Comment:Desirable Triglyceri de: less than 150 mg/dLBorderline High Triglyceride 150-199 mg/dLHigh Triglyceride: 200-499 mg/dLVery High Triglyceride: greater than or equal to 5OO mg/dL Cholesterol 154 <200 mg/dL [facility] Comment:Desirable Cholestero l: less than 200 mg/dLBorderline High Cholesterol: 200-239 mg/dLHigh Cholesterol: greater than 239 mg/dL LDL Cholesterol Calculated 104(H) <100 mg/dL [facility] Comment:Desirable LDL: less than 100 mg/dLNear Optimal/Above Optimal LDL: 110- 129 mg/dLBorderline High LDL: 130-159 mg/dLHigh LDL: 160-189 mg/dLVery High LDL: greater than or equal to 190 mg/dL HDL Cholesterol 36(L) >40 mg/dL [facility] Comment:Desirable HDL: great er than 40 mg/dL Note: This HDL assay may give artificially low results in patients with liver disease. 11/15/2024 10:1 9 AM EDT 11/15/2024 10:19 AM EDT us Generic External Data Provider LAB BLOOD ORDERAB LES Final Result [facility] [address] [place] [phone] * (ABNORMAL) Comprehensive Metabolic Panel (11/15/2024 10:19 AM EDT) Sodium 138 135 - 145 mmol/L [facility] Potassium 4.7 3.3 - 5.1 mmol/L [facility] Chloride 105 96 - 108 mmol/L [facility] Carbon Dioxide 26 22 - 29 mmol/L [facility] Anion Gap 12 12 - 20 [facility] Urea Nitrogen (BUN) 12 9 - 16 mg/dL [facility] Creatinine, Serum 0.77 0.5 - 1.4 mg/dL [facility] Estimated Glomerular Filt Rate >60 [facility] Comment:Chronic Kidney Disea se: Estimated GFR < 60 mL/min/1.43c9Hgyasq Kidney Disease: Estimated GFR < 15 mL/min/1.73m2 Glucose 90 60 - 115 mg/dL [facility] Calcium 9.4 8.4 - 10.2 mg/dL [facility] Bilirubin, Total 0.4 0.0 - 1.0 mg/dL [facility] Aspartate Amino Transferase 29 5 - 31 U/L [facility] Alanine Aminotransferase 34(H) 0 - 31 U/L [facility] Total Protein 7.9 6.5 - 8.0 g/dL [facility] Albumin Level 4.3 3.5 - 5.0 g/dL [facility] Alkaline Phosphatase 60 39 - 117 U/L [facility] 11/15/2024 10:1 9 AM EDT 11/15/2024 10:19 AM EDT us Generic External Data Provider LAB BLOOD ORDERAB LES Final Result [facility] [address] [place] [phone] * Hepatitis C Antibody with Reflex to HCV, RNA, Quantitative, Real-Time PCR (08/05/2024 9:33 AM EDT) Hepatitis C Antibody Nonreactive Nonreactive [facility] Comment:Antibodies to HCV no t detected; does not exclude early acuteHCV infection. Blood Venous blood specimen / Unknown 08/05/2024 9:33 AM EDT 08/05/2024 11:27 AM EDT Marleni Hunt DO LAB BLOOD ORDERABLES Final R esult Performing Organization Address City/[facility]/ZIP Co de Phone Number [facility] [address] [place] [phone] * HIV-1/2 Antigen and Antibodies, Fourth Generation, with Reflexes (08/05/2024 9:33 AM EDT) Pathologist [facility] HIV AB/AG Nonreactive Nonreactive [facility] Comment:HIV-1 p24 Ag and/or HIV-1/HIV-2 Ab not detected.A test result that is nonreactive does not exclude thepossibility of exposure to or infection with HIV-1 and/orHIV-2. Nonreactive results in this assay for individualswith prior exposure to HIV-1 and/or HIV-2 may be due toantigen and antibody levels that are below the limit ofdetection of this assay.The [employer] HIV Ag/Ab Combo assay result andsupplemental assay results should be interpreted inconjunction with the patient's clinical presentation,history and other laboratory results. If the results areinconsistent with clinical evidence, additional testing issuggested to confirm the result. Blood Venous blood specimen / Unknown 08/05/2024 9:33 AM EDT 08/05/2024 11:27 AM EDT us Marleni Hunt DO LAB BLOOD ORDERABLES Final R esult Performing Organization Address City/[facility]/ZIP Co de Phone Number [facility] [address] [place] [phone] from Last 3 Months or Most Recently Relevant to Health Maintenance Insurance [address] [id number] [facility] Care Teams Messenger Copy Relationship Specialty Start Date End Date Marleni Hunt DO [address] [place] [phone] PCP - General Family Medicine 08/02/24
--- OUTSIDE RECORDS SUMMARY | 2024-11-15 12:32 | XMS_ITS | Patient Health Record ---
Author Organization [facility] Address [address] [place] [address] Care Team Providers Care Construction Contractor Name Role Phone NO, PCP Primary Care Provider [phone] [facility] Unavailable [phone] [facility], Nursing Unavailable [phone] Reason For Referral No Information Plan Of Treatment No Information Insurance Providers Payer Name Payer Address Payer Phone Subscriber Number Group Number Insured Name Patient Relationship to Insured Coverage Start Date Coverage End Date [place] [employer] [address] [place], [place] [id number] Indu Reyes Self - patient is the insured 5
--- OUTSIDE RECORDS SUMMARY | 2024-11-15 12:32 | XMS_ITS | Encounter Summary ---
Author Organization [employer] Address [address] [facility] [address] [place] [address] Care Team Providers Care Qc Scientist Name Role Phone Marleni Hunt DO Primary Care Provider Encounter Details Date Type Department Care Team (Late st Contact Info) Description 11/15/2024 Orders Only GENERIC EXTERNAL DATA DEPARTMENT Provider, Generic External Data Social History Tobacco Use Types Packs/Day Years Used Date Smoking Tobacco: Never Smokeless Tobacco: Never Alcohol Use Standard Drinks/Week Comments Never 0 [...] Don't know 08/02/2024 8: 36 AM EDT documented as of this encounter Plan of Treatment Not on file documented as of this encounter Procedures Procedure Name Priority Date/Time Associated Diagnosis Comments XR CHEST 2 VIEWS Routine 11/15/2024 10:4 9 AM EDT VITAMIN D,25-OH,TOTAL,IA Routine 11/15/2024 10:19 AM EDT VITAMIN B12/FOLATE, SERUM PANEL Routine 11/15/2024 10:19 AM EDT TSH W/REFLEX TO FT4 Routine 11/15/2024 1 0:19 AM EDT CBC WITH AUTO DIFFERENTIAL Routine 11/15/2024 10:19 AM EDT IRON AND TOTAL IRON BINDING CAPACITY Routine 11/15/2024 10:19 AM EDT INSULIN Routine 11/15/2024 10:19 AM EDT C-REACTIVE PROTEIN Routine 11/15/2024 10 :19 AM EDT HEMOGLOBIN A1C Routine 11/15/2024 10:19 AM EDT FERRITIN Routine 11/15/2024 10:19 AM EDT LIPID PANEL, STANDARD Routine 11/15/2024 10:19 AM EDT COMPREHENSIVE METABOLIC PANEL Routine 11/15/2024 10:19 AM EDT documented in this encounter Results * XR Chest 2 Views (11/15/2024 10:49 AM EDT) Anatomical Region Laterality Modality Chest Radiographic Dionna ging 11/15/2024 10:4 9 AM EDT Narrative 11/15/2024 10:58 AM EDT [address] [address] XRay Report Signed Patient: Indu Reyes MR#: [id number] : 1995 Acct:[id number] Age/Sex: 29 / F ADM Date: 11/15/24 Loc: HO.LAB Attending Dr: Al Deleon MD Ordering Physician: Al Deleon MD Date of Service: 11/15/24 Procedure(s): XR chest 2V Accession Number(s): [id number] cc: Marleni Hunt DO; Al Deleon MD [...] IMPRESSION: No acute disease Electronically signed by: Jovanyn Love MD 11/15/2024 10:56 AM EDT Dictated By: Jovanny Love MD Signed By: <Electronically signed by Jovanny Love MD in OV> 11/15/24 1056 DD/ 1049 TD/TT: 11/15/24 1053 Market Relationship Manager: Procedure Note Donotuseinterpreter, Image - 11/15/[address] [address] XRay Report Signed Patient: Indu Reyes MR#: [id number] : 1995Acct:[id number] Age/Sex: 29 / FADM Date: 11/15/24 Loc: HO.LAB Attending Dr: lA Deleon MD Ordering Physician: Al Deleon MD Date of Service: 11/15/24 Procedure(s): XR chest 2V Accession Number(s): [id number] cc: Marleni Hunt DO; Al Deleon MD [...] 11/15/24 1056 DD/ 1049 TD/TT: 11/15/24 1053 Market Relationship Manager: [facility] External Provider IMG XR PROCEDURES Edited Result - Final * (ABNORMAL) Vitamin B12 (Cobalamin) and Folate Panel, Serum (11/15/2024 10:19 AM EDT) Vitamin B12 168(L) 200 - 900 pg/mL [facility] Comment:NORMAL 200-900 PG/ML INDETERMINATE 160-199 PG/ML DEFICIENT < 160 PG/ML Folate 12.8 > or = 4.0 ng/mL [facility] Comment:Reference Values:> o r = 4.0 ng/mL< 4.0 ng/mL suggests folate deficiency Methotrexate, aminopterin and folinic acid(leucovorin) are chemotherapeutic agents whose molecularstructures are similar to folate; therefore, the Architectfolate assay cannot be used for patients using these drugs. 11/15/2024 10:1 9 AM EDT 11/15/2024 10:19 AM EDT Generic External Data Provider LAB BLOOD ORDERAB LES Final Result Performing Organization Address [facility] Co de Phone Number [facility] [address] [place] [phone] * Insulin (11/15/2024 10:19 AM EDT) Pathologist [facility] Insulin 13 2 - 29 uU/mL [facility] Comment:This test was perfor med using the Jasso chemiluminescentmethod. Values obtained from different assay methods [...] ORDERAB LES Final Result Performing Organization Address [facility] Co de Phone Number [facility] [address] [place] [phone] * TSH with Reflex to Free T4 (11/15/2024 10:19 AM EDT) [facility] TSH reflex Free T4 1.11 0.32 - 4.0 uIU/mL [facility] 11/15/2024 10:1 9 AM EDT 11/15/2024 10:19 AM EDT Generic External Data Provider LAB BLOOD ORDERAB LES Final Result Performing Organization Address [facility] Co de Phone Number [facility] [address] [place] [phone] * Vitamin D, 25-Hydroxy, Total, Immunoassay (11/15/2024 10:19 AM EDT) Pathologist [facility] Vitamin D 25-OH Total 41.0 >30 ng/mL [facility] Comment: Health Based Reference Values*< 20 ng/mL Iivrelnyy49-29 ng/mL Insufficient> 30 ng/mL Sufficient*Jessica BLANCO. N [...] Provider LAB BLOOD ORDERAB LES Final Result [facility] [address] [place] [phone] * (ABNORMAL) Lipid Panel, Standard (11/15/2024 10:19 AM EDT) Triglycerides 73 <150 mg/dL [facility] Comment:Desirable Triglyceri de: less than 150 mg/dLBorderline High Triglyceride 150-199 mg/dLHigh Triglyceride: 200-499 mg/dLVery High Triglyceride: greater than or equal to 5OO mg/dL Cholesterol 154 <200 mg/dL [facility] Comment:Desirable Cholestero l: less than 200 mg/dLBorderline High Cholesterol: 200-239 mg/dLHigh Cholesterol: greater than 239 mg/dL LDL Cholesterol Calculated 104(H) <100 mg/dL [facility] Comment:Desirable LDL: less than 100 mg/dLNear Optimal/Above Optimal LDL: 110- 129 mg/dLBorderline High LDL: 130-159 mg/dLHigh LDL: 160-189 mg/dLVery High LDL: greater than or equal to 190 mg/dL HDL Cholesterol 36(L) >40 mg/dL [facility] Comment:Desirable HDL: great er than 40 mg/dL Note: This HDL assay may give artificially low results in patients with liver disease. 11/15/2024 10:1 9 AM EDT 11/15/2024 10:19 AM EDT us Generic External Data Provider LAB BLOOD ORDERAB LES Final Result Performing Organization Address [facility] Co de Phone Number [facility] [address] [place] [phone] * (ABNORMAL) C-reactive Protein (11/15/2024 10:19 AM EDT) C Reactive Protein 1.48(H) < or = 0.50 mg/dL [facility] 11/15/2024 10:1 9 AM EDT 11/15/2024 10:19 AM EDT us Generic External Data Provider LAB BLOOD ORDERAB LES Final Result Performing Organization Address [facility] Co de Phone Number [facility] [address] [place] [phone] * (ABNORMAL) Ferritin (11/15/2024 10:19 AM EDT) Ferritin 142(H) 10 - 122 ng/mL [facility] 11/15/2024 10:1 9 AM EDT 11/15/2024 10:19 AM EDT us Generic External Data Provider LAB BLOOD ORDERAB LES Final Result Performing Organization Address [facility] Co de Phone Number [facility] [address] [place] [phone] * Iron And Total Iron Binding Capacity (11/15/2024 10:19 AM EDT) Iron 100 30 - 160 mcg/dL [facility] Total Iron Binding Capacity 267 228 - 428 mcg/dL [facility] Percent Iron Saturation 37 15 - 50 % [facility] Unsaturated Iron Binding 167 ug/dL [facility] 11/15/2024 10:1 9 AM EDT 11/15/2024 10:19 AM EDT us Generic External Data Provider LAB BLOOD ORDERAB LES Final Result [facility] [address] [place] [phone] * (ABNORMAL) Comprehensive Metabolic Panel (11/15/2024 10:19 AM EDT) Sodium 138 135 - 145 mmol/L [facility] Potassium 4.7 3.3 - 5.1 mmol/L [facility] Chloride 105 96 - 108 mmol/L [facility] Carbon Dioxide 26 22 - 29 mmol/L [facility] Anion Gap 12 12 - 20 [facility] Urea Nitrogen (BUN) 12 9 - 16 mg/dL [facility] Creatinine, Serum 0.77 0.5 - 1.4 mg/dL [facility] Estimated Glomerular Filt Rate >60 [facility] Comment:Chronic Kidney Disea se: Estimated GFR < 60 mL/min/1.66a8Hhutzz Kidney Disease: Estimated GFR < 15 mL/min/1.73m2 Glucose 90 60 - 115 mg/dL [facility] Calcium 9.4 8.4 - 10.2 mg/dL [facility] Bilirubin, Total 0.4 0.0 - 1.0 mg/dL [facility] Aspartate Amino Transferase 29 5 - 31 U/L [facility] Alanine Aminotransferase 34(H) 0 - 31 U/L [facility] Total Protein 7.9 6.5 - 8.0 g/dL [facility] Albumin Level 4.3 3.5 - 5.0 g/dL [facility] Alkaline Phosphatase 60 39 - 117 U/L [facility] 11/15/2024 10:1 9 AM EDT 11/15/2024 10:19 AM EDT Generic External Data Provider LAB BLOOD ORDERAB LES Final Result Performing Organization Address [facility] Co de Phone Number [facility] [address] [place] [phone] * Hemoglobin A1c (11/15/2024 10:19 AM EDT) Hemoglobin A1c 5.4 <6.0 % [facility] Comment:Hemoglobin A1C Refer ence Range Adults: 4.8 - 6.0 % Non diabetic: < 6.0 % Goal: < 7.0 %Additional Action Suggested: > 8.0 %Note: Hemoglobin A1c results are invalid for patients with abnormal amounts of HbF. Blood transfusions may impact the HbA1c concentration in the patient sample. Estimated Average Glucose 108 mg/dL [facility] Comment:eAG = Estimated ave rage glucose which is %A1C expressed asaverage glucose, using the formula of the U3Q-GyevtavVauoejj Glucose study (ADAG), Diabetes Care, Vol.31,#8,Oct. 2007 11/15/2024 10:1 9 AM EDT 11/15/2024 10:19 AM EDT us Generic External Data Provider LAB BLOOD ORDERAB LES Final Result Performing Organization Address [facility] Co de Phone Number [facility] [address] [place] [phone] * CBC auto differential (11/15/2024 10:19 AM EDT) White Blood Count 7.2 4.8 - 10.8 X10*3/uL [facility] Red Blood Count 4.37 4.20 - 5.50 X10*6/uL [facility] Hemoglobin 12.2 12.0 - 16.0 g/dl [facility] Hematocrit 37.6 37.0 - 47.0 % [facility] Mean Corpuscular Volume 86.0 80.0 - 98.0 fL [facility] Mean Corpuscular Hemoglobin 27.9 27.0 - 33.0 pg [facility] Mean Corpuscular HGB Conc 32.4 31.0 - 35.0 g/dl [facility] Red Cell Distribution Width 13.4 11.0 - 16.0 % [facility] Platelet Count 309 160 - 400 X10*3/uL [facility] Mean Platelet Volume 11.0 9.4 - 12.3 fL [facility] Neutrophils Percent Auto 50.3 45 - 73 % [facility] Imm Gran Pct Auto 0.3 0.0 - 0.4 % [facility] Lymphocytes Percent Auto 39.9 20 - 40 % [facility] Monocytes Percent Auto 7.3 2 - 11 % [facility] Eosinophils Percent Auto 1.4 0 - 4 % [facility] Basophils Percent Auto 0.8 0 - 2 % [facility] NRBC Pct Auto 0.0 0.0 - 0.2 /100WBC [facility] Neutrophils Absolute Auto 3.6 2.0 - 8.3 x10*3/uL [facility] Imm Gran Abs Auto 0.02 0.00 - 0.03 X10*3/uL [facility] Lymphocytes Absolute Auto 2.9 1.2 - 4.9 X10*3/uL [facility] Monocytes Absolute Auto 0.5 0.1 - 1.2 X10*3/uL [facility] Eosinophils Absolute Auto 0.1 0.0 - 0.4 X10*3/uL [facility] Basophils Absolute Auto 0.1 0.0 - 0.2 X10*3/uL [facility] NRBC Abs Auto 0.000 0.0 - 0.012 X10*3/uL [facility] 11/15/2024 10:1 9 AM EDT 11/15/2024 10:19 AM EDT us Generic External Data Provider LAB BLOOD ORDERAB LES Final Result [facility] [address] [place] [phone] documented in this encounter Visit Diagnoses Not on filedocumented in this encounter Additional Health Concerns Assessment Noted Time PHQ-9 Depression Total Score: 3 08/03/19 25 12:34 PM EDT documented as of this encounter Care Teams Qc Scientist Relationship Specialty Start Date End Date Marleni Hunt DO [address] [place] [phone] PCP - General Family Medicine 08/02/24 documented as of this encounter
== END 2024-11-15 10:01 | disposition home or self-care (01) ==
LOC: HO.LAB 10:00
PROVIDERS: PCP Family Medicine; Visit Provider Surgery
DX: E66.01 Morbid (severe) obesity due to excess calories (principal); E28.2 Polycystic ovarian syndrome
CPT/HCPCS: 36415; 71046; 80053; 80061; 82306; 82607; 82728; 82746; 83036; 83525; 83540; 84425; 84443; 84590; 84630; 85025; 86140; 93005

== ENCOUNTER → 2024-11-15 10:14 | Outpatient (BNV) | payer OTHER, MEDICAID, SELFPAY | PROVIDERS: PCP Family Medicine; Visit Provider Internal Medicine | DX: E66.01 Morbid (severe) obesity due to excess calories (principal) | CPT/HCPCS: 93010 ==

== ENCOUNTER → 2024-11-15 10:42 | Outpatient (BNV) | payer OTHER, MEDICAID, SELFPAY | PROVIDERS: PCP Family Medicine; Visit Provider Radiology Diagnostic Radiology | DX: E66.01 Morbid (severe) obesity due to excess calories (principal) | CPT/HCPCS: 71046 ==

== ENCOUNTER 2024-12-02 11:44 | Day surgery (SDC) | payer OTHER, SELFPAY ==
--- OUTSIDE RECORDS SUMMARY | 2024-08-27 09:30 | XMS_ITS ---
Author Organization [facility] Address [address] [place] [phone] Care Team Providers Care Solder Deposit Operator Name Role Phone NO, PCP Primary Care Provider SHS, CHW Unavailable [phone] SHS, Nursing Unavailable [phone] REASON FOR VISIT Phone: Intake Encounters Encounter Location Date Provider Diagnosis [address] [address] 08/27/2024 Nursing [facility] Plan Of Treatment No Information Progress Notes * Corrina BIGGS y CDOB:1995 (29 yo F)Acc No.[id number]:08/27/2024 Progress Notes Patient: Kathy Indu SANDHU Provider: Mohsen LACEY :1995 A ge:28 Y S ex:Female Date:08/27/2024 Address:[address] [place] [address] Nemesio Johnston [place]-[id number] Pcp:PCP NO Subjective: * Chief Complaints: * 1 . Phone: Intake. * Medical History: Objective: * Vitals: Assessment: Plan: * Treatment: * Images: Billing Information: * Visit Code: * Procedure Codes: * Electronic signature of Bk [facility] on 11/10/2024 at 11:12 AM EDT Sign off status: Pending * Provider: Mohsen coulter [facility] Date: 08/27/2024 Generated for Zach capps/Gabe/eTransmitting on: 0 11/10/2024 11:12 AM EDT
--- OUTSIDE RECORDS SUMMARY | 2024-11-10 11:12 | XMS_ITS | Patient Health Record ---
Author Organization [facility] Address [address] [place] [address] Care Team Providers Care Light Fixture Servicer Name Role Phone NO, PCP Primary Care Provider [facility] Unavailable [phone] [facility], Nursing Unavailable [phone] Reason For Referral No Information Plan Of Treatment No Information Insurance Providers Payer Name Payer Address Payer Phone Subscriber Number Group Number Insured Name Patient Relationship to Insured Coverage Start Date Coverage End Date [place] Medicaid Limited [address] [place], [place] [id number] Indu Reyes Self - patient is the insured 5
--- OUTSIDE RECORDS SUMMARY | 2024-11-10 11:12 | XMS_ITS | Clinical Summary ---
Author Organization [employer] Address [address] [facility] [address] [place] [address] Care Team Providers Care Software Test Technician Name Role Phone Herlinda Huntfer Primary Care Provider Allergies No known active [...] ovarian syndrome 08/02/2024 BMI 40.0-44.9, adult 08/02/2024 Family History Medical History Relation Name Comments [...] Procedure Name Priority Date/Time Associated Diagnosis Comments HEPATITIS C AB W/REFL TO HCV RNA, QN, PCR Routine 08/05/2024 9:33 AM EDT Routine history and physical examination of adult Polycystic ovarian syndrome BMI 40.0-44.9, adult ([facility]) HIV 1/2 ANTIGEN/ANTIBODY, FOURTH GENERATION W/RFL Routine 08/05/2024 9:33 AM EDT Routine history and physical examination of adult Polycystic ovarian syndrome BMI 40.0-44.9, adult ([facility]) LIPID PANEL, STANDARD Routine 08/05/2024 9:33 AM EDT Routine history and physical examination of adult Polycystic ovarian syndrome BMI 40.0-44.9, adult (CMS/HCC) from Last 3 Months or Most Recently Relevant to Health Maintenance Results * Hepatitis C Antibody with Reflex to HCV, RNA, Quantitative, Real-Time PCR (08/05/2024 9:33 AM EDT) Hepatitis C Antibody Nonreactive Nonreactive [facility] Comment:Antibodies to HCV no t detected; does not exclude early acuteHCV infection. Blood Venous blood specimen / Unknown 08/05/2024 9:33 AM EDT 08/05/2024 11:27 AM EDT Marleni Hunt DO LAB BLOOD ORDERABLES Final R esult [facility] [address] [place] [phone] * HIV-1/2 Antigen and Antibodies, Fourth Generation, with Reflexes (08/05/2024 9:33 AM EDT) HIV AB/AG Nonreactive Nonreactive [facility] Comment:HIV-1 p24 Ag and/or HIV-1/HIV-2 Ab not detected.A test result that is nonreactive does not exclude thepossibility of exposure to or infection with HIV-1 and/orHIV-2. Nonreactive results in this assay for individualswith prior exposure to HIV-1 and/or HIV-2 may be due toantigen and antibody levels that are below the limit ofdetection of this assay.The [employer] HIV Ag/Ab Combo assay result andsupplemental assay results should be interpreted inconjunction with the patient's clinical presentation,history and other laboratory results. If the results areinconsistent with clinical evidence, additional testing issuggested to confirm the result. Blood Venous blood specimen / Unknown 08/05/2024 9:33 AM EDT 08/05/2024 11:27 AM EDT us Marleni Hunt DO LAB BLOOD ORDERABLES Final R esult Performing Organization Address [facility] Co de Phone Number [facility] [address] [place] [address] [phone] * (ABNORMAL) Lipid Panel, Standard (08/05/2024 9:33 AM EDT) Triglycerides 70 <150 mg/dL [facility] Comment:Desirable Triglyceri de: less than 150 mg/dLBorderline High Triglyceride 150-199 mg/dLHigh Triglyceride: 200-499 mg/dLVery High Triglyceride: greater than or equal to 5OO mg/dL Cholesterol 160 <200 mg/dL [facility] Comment:Desirable Cholestero l: less than 200 mg/dLBorderline High Cholesterol: 200-239 mg/dLHigh Cholesterol: greater than 239 mg/dL LDL Cholesterol Calculated 106(H) <100 mg/dL [facility] Comment:Desirable LDL: less than 100 mg/dLNear Optimal/Above Optimal LDL: 110- 129 mg/dLBorderline High LDL: 130-159 mg/dLHigh LDL: 160-189 mg/dLVery High LDL: greater than or equal to 190 mg/dL HDL Cholesterol 40(L) >40 mg/dL [facility] Comment:Desirable HDL: great er than 40 mg/dL Note: This HDL assay may give artificially low results in patients with liver disease. Blood Venous blood specimen / Unknown 08/05/2024 9:33 AM EDT 08/05/2024 11:32 AM EDT us Marleni Hunt DO LAB BLOOD ORDERABLES Final R esult Performing Organization Address City/[facility]/ZIP Co de Phone Number [facility] [address] [place] [phone] from Last 3 Months or Most Recently Relevant to Health Maintenance Insurance [facility] Care Teams Software Test Technician Relationship Specialty Start Date End Date Marleni Hunt DO [address] [place] [phone] PCP - General Family Medicine 08/02/24
[2024-11-30 13:54] VITALS: BMI 40.8
--- NOTE | 2024-12-01 08:29 | HO.ANESPROP2 ---
Documented by User: Kim Ortega NP 12/01/24 08:30 HPI - Anesthesia Eval Consult details Narrative: 29yo F for Upper Endoscopy PMFSH Active Problems Active Problems: All Active Problems Vitamin B12 deficiency (Acute) Back pain (Acute) PCOS (polycystic ovarian syndrome) (Acute) Morbid obesity (Acute) Past Medical History Medical History Back pain PCOS (polycystic ovarian syndrome) Morbid obesity Family History Family History Mother No problems noted. Father Malignant neoplasm skin of leg Surgical History Surgical History Hx of dilation and curettage Social History Social History Are you a primary home child care provider to a significant other at home: No Do you presently have visiting nurse or other home services: No Alcohol intake: never Patient Tobacco Use Status: Never used Tobacco Have you been hit, kicked, punched, or otherwise hurt by someone within the past year? If so, by whom?: No Are you DNR?: No Advance Directives: No Advance Directives Information Provided: Yes FDLMP: finished Friday Poor oral hygiene: No Meds Allergies Allergy/AdvReac Type Severity Reaction Status Date / Time No Known Allergies Allergy Verified 12/02/24 11:56 Home Medications ?Medication ?Instructions ?Recorded ?Confirmed ?Last Taken ?Type VITAMIN D PO 10/27/24 11/05/24 Unknown History metformin 500 mg tablet 500 mg PO DAILY 11/05/24 11/30/24 Unknown History Exam Height,Weight and Vital Signs: Height 5 ft 4 in Weight 107.955 kg Assessment and Plan Assessment Anesthesia Assessment: Chart Reviewed Documented by User: Carolina Aldana MD 12/02/24 14:59 PMFSH Past Medical History Medical History Back pain PCOS (polycystic ovarian syndrome) Morbid obesity Family History Family History Mother No problems noted. Father Malignant neoplasm skin of leg Surgical History Surgical History Hx of dilation and curettage History of Problems with Anesthesia: No Social History Social History Are you a primary home child care provider to a significant other at home: No Do you presently have visiting nurse or other home services: No Alcohol intake: never Patient Tobacco Use Status: Never used Tobacco Have you been hit, kicked, punched, or otherwise hurt by someone within the past year? If so, by whom?: No Are you DNR?: No Advance Directives: No Advance Directives Information Provided: Yes FDLMP: finished Friday Poor oral hygiene: No Meds Allergies Allergy/AdvReac Type Severity Reaction Status Date / Time No Known Allergies Allergy Verified 12/02/24 11:56 Home Medications ?Medication ?Instructions ?Recorded ?Confirmed ?Last Taken ?Type VITAMIN D PO 10/27/24 11/05/24 Unknown History metformin 500 mg tablet 500 mg PO DAILY 11/05/24 11/30/24 Unknown History Exam Airway Mallampati Class: II TM Dist: >3cm Neck ROM: Full Loose/Missing/Broken Teeth: No Heart: RRR Lungs: CTA Assessment and Plan Assessment Anesthesia Assessment: Anesthesia Plan Discussed Final Anesthetic Review History of Problems with Anesthesia: No NPO: Yes ASA Class: III Final Preanesthetic Review: Meds/Allgs Chart Reviewed, Consent Obtained/Reviewed and Anes Risks/Benef Reviewed Patient Risk: Intermediate Procedure Risk: Intermediate Anesthetic Plan Anesthetic Plan: MAC: Disposition: Standard PACU
[2024-12-02 11:55] VITALS: BMI 39.8
[2024-12-02] MEDS: Lactated Ringers 1,000 ML 80 ML IVCONT (11:59)
[2024-12-02 12:12] VITALS: BP 146/90; PULSE 90; RESP 18; TEMP 36.7; O2SAT 99
[2024-12-02 12:17] LABS: UPreg QC Valid YES
--- NOTE | 2024-12-02 14:28 | MHC.SHP ---
Pre-Procedural Eval Section A - 24 Hr Update-Section A only Date of Service: 12/02/24 The patient is an INPATIENT: No The patient has been examined within 24 hours of the surgical procedure. The History & Physical has been completed within 30 days and I have reviewed it.: Yes Section B - Complete if H&P > 30 days Chief Complaint: Morbid (severe) obesity due to excess calories Relevant Family History (Specify if Yes): No Relevant Social History: None Present Medications: None Medical History: No relevant PMH History of Previous Operations: No relevant previous surgery Allergies: Allergies Allergy/AdvReac Type Severity Reaction Status Date / Time No Known Allergies Allergy Verified 12/02/24 11:56 Review of Systems Sugical H&P ROS: Negative: Constitution, Cardiovascular, Respiratory, Neurological, Psychiatric, Hem-Onc, Allergic/Immunologic, Gastrointestinal, Genitourinary, Musculoskeletal, Integumentary, Endocrine and Eyes/Ears/Nose/Throat Exam Surgical H&P Exam: Normal: HEENT, Normal: Heart, Normal: Lungs, Normal: Extremities, Normal: Abdomen, Normal: Skin and Normal: Neurological Plan Diagnosis/Plan: Unchanged (EGD to assess the stomach's anatomy. Risks of bleeding and perforation were discussed with the patient and she is in agreement with the plan.) I have reviewed the history and physical and performed a pertinent physical examination on my patient. No changes have occurred unless specified. Time Spent With Patient Time: Total time managing care of this patient today ____ minutes.
--- NOTE | 2024-12-02 14:29 | PM.OP ---
Brief Operative Note Date of Service: 12/02/24 Pre-op diagnosis: Morbid obesity Post-op diagnosis: same Procedure: PROCEDURE DATE: 12/02/2024 PREOPERATIVE DIAGNOSIS: Morbid obesity POSTOPERATIVE DIAGNOSIS: ?Same as above. Normal endoscopy PROCEDURE: Suhrshpu-ogagag-jvaaqcskujgw with biopsies Surgeon: Beckie Deleon M.D.. Ph.D. And Taxi Instructor Bus Trolley: None ? Anesthesia: IV sedation Estimated blood loss: ?Minimal FINDINGS AND PROCEDURE: ? OPERATIVE INDICATIONS: ?The patient is a 29 year old female known to me who is interested in bariatric surgery. Based on this information I recommended an upper endoscopy to evaluate the patient's symptoms. Risks and complications of the surgery were discussed with the patient in advance particularly the possibility of perforation or bleeding that may require surgical intervention. The patient understood the risks and was in agreement with the plan. ? PROCEDURE: After informed consent was obtained by the patient, the patient was ?transferred to the Operating Room and was placed in the supine position.? After successful induction of IV sedation, a mouth block was inserted and the patient was placed in the left lateral decubitus position. An upper endoscopy was performed next, the oropharynx and esophagus appeared within the normal limits. There was no hiatal hernia. The z-line was smooth. Two biopsies were obtained from the distal esophagus 2-3 cm proximal to the GE junction and two additional biopsies from the GE junction. The stomach was entered and it appeared to be of normal size. There was no gastritis. There was no stricture or ulcer. A biopsy was obtained from the gastric fundus and the antrum. No significant bleeding was noted from any of the biopsy sites. Retroflexion of the scope confirmed the presence of a normal GE junction. The scope was then advanced into the duodenum which appeared to be normal as well. At that point the duodenum ?and the stomach were decompressed and the scope was withdrawn from the patient's mouth. The patient extubated and was transferred in stable condition to the Recovery Room for further care. I was present and performed all steps of the procedure. There were no residents to assist with this case. Jose Carlos Deleon M.D., Ph.D. Surgeon: Al Deleon MD Anesthesia: MAC Was an And Taxi Instructor Bus Trolley used for this Procedure?: No Estimated blood loss (mL): 0 IV fluids (mL): 400 Urine output (mL): 0 (No Ontiveros to record output) Pathology: other (1) antrum x1, 2) fundus x1, 3) GE junction x2, 4) distal esophagus x2) Condition: stable Disposition: PACU
[2024-12-02 15:21] VITALS: BP 129/77; PULSE 77; RESP 16; TEMP 36.4; O2SAT 99
[2024-12-02 15:35] VITALS: BP 139/92; PULSE 91; RESP 16; TEMP 36.4; O2SAT 98
== END 2024-12-02 15:56 | disposition home or self-care (01) ==
PROVIDERS: Nurse Practitioner; PCP Family Medicine; Visit Provider Surgery
PROC: 0DJ08ZZ Inspection of Upper Intestinal Tract, Via Natural or Artificial Opening Endoscopic (ICD-10-PCS; CPT 43235; principal; 2024-12-02 14:30)
DX: E66.01 Morbid (severe) obesity due to excess calories (principal); Z68.41 Body mass index [BMI] 40.0-44.9, adult; E28.2 Polycystic ovarian syndrome; M54.9 Dorsalgia, unspecified; Z79.84 Long term (current) use of oral hypoglycemic drugs; Z79.899 Other long term (current) drug therapy
CPT/HCPCS: 43239; 81025; 88305; 88313; 88342; J1596; J2003; J2250; J2704

== ENCOUNTER → 2024-12-02 11:44 | Outpatient (BNV) | payer OTHER, SELFPAY | PROVIDERS: PCP Family Medicine; Visit Provider Surgery | DX: E66.01 Morbid (severe) obesity due to excess calories (principal); Z68.41 Body mass index [BMI] 40.0-44.9, adult | CPT/HCPCS: 43239 ==

== ENCOUNTER 2024-12-15 10:19 | Outpatient (AMB) | payer OTHER, SELFPAY ==
--- OUTSIDE RECORDS SUMMARY | 2024-08-27 09:30 | XMS_ITS ---
Author Organization [facility] Address [address] [place] [phone] Care Team Providers Care Police Specialist Name Role Phone NO, PCP Primary Care Provider SHS, CHW Unavailable [phone] SHS, Nursing Unavailable [phone] REASON FOR VISIT Phone: Intake Encounters Encounter Location Date Provider Diagnosis [address] [address] 08/27/[address] [facility] Plan Of Treatment No Information Progress Notes * Corrina BIGGS y CDOB:1995 (29 yo F)Acc No.[id number]:08/27/2024 Progress Notes Patient: Kathy Indu SANDHU Provider: Mohsen LACEY :1995 A ge:28 Y S ex:Female Date:08/27/2024 Address:[address] [place] [address] [place]-[id number] Pcp:PCP NO Subjective: * Chief Complaints: * 1 . Phone: Intake. * Medical History: Objective: * Vitals: Assessment: Plan: * Treatment: * Images: Billing Information: * Visit Code: * Procedure Codes: * Electronic signature of Bk gaytan [facility] on 12/15/2024 at 12:10 PM EDT Sign off status: Pending * Provider: Mohsen coulter [facility] Date: 0 08/27/2024 Generated for Zach capps/Gabe/eTransmitting on: 1 12:10 PM EDT
--- NOTE | 2024-12-15 10:05 | MHC.WMTHER ---
Intake Intake Visit Reasons: TV BH Intake Allergies No Known Allergies Allergy (Verified 12/02/24 11:56) PFSH Medical History Back pain PCOS (polycystic ovarian syndrome) Morbid obesity Surgical History Hx of dilation and curettage Family History Mother No problems noted. Father Malignant neoplasm skin of leg Social History Are you a primary career services director to a significant other at home: No Do you presently have visiting nurse or other home services: No Alcohol intake: never Patient Tobacco Use Status: Never used Tobacco Behavioral Health Assessment Weight Management Therapy Therapy Notes Details The patient is a 29-year-old self-referred female presenting for an initial behavioral health assessment as part of a surgical weight loss program. She reports a longstanding history of obesity and has attempted various diets and weight loss methods without significant success. Her primary motivation for weight loss is to improve her fertility, as obesity has exacerbated her hormonal and PCOS-related issues, contributing to infertility. Presenting Concerns Referral Source WMP-Provider Reason for referral Completion of behavioral health assessment as part of process for weight-loss surgery. Precipitating Event Obesity. Living Situation Current Living Situation Rent At risk of losing current housing? No Satisfied with current living situation? Yes Comments PT lives with her . Food/Weight/Diet Expectations of change Pt started the program on 11/05/2024 at 238Lbs, and her recent weight on 12/14/2024 was 228Lbs. Initial goal is to lose 10% of your weight before surgery, which is about 24lbs. Ultimate weight goal: 214lbs before surgery. Patient wants to be at her healthy weight. PT is implementing the following: Current meal plan: 2 protein shakes, 2 protein bars and one meal per day. Exercise plan: treadmill, 35 minutes minimum, elliptical 25 min for 300 [place] at day. 5 days at week. scale: yes Communication with provider: on Fridays. Social History Family history and relationship PT is 7 years ago. Parents are alive, she has 2 siblings alive and 1 1 year ago. PT reports a good childhood. Her parents when she was 8 years old. PT reports all of her inmediate family are in , [place] in [place] she has her busband an aunt in [place] and some of her 's family. She is very close to her family and they talk every day. Parental/Familial supervisor hand workers obligations None reported. Developmental history and status None reported. Currently WNL. Social support , parents. Community support None. Rastafari/Spirituality Amish. Cultural/Ethnic information PT is from [facility], [place] 10 [place]. Her main language is Swiss. Legal Involvement and History Current or historical involvement with the legal system? None reported. Education Highest grade completed HS and 1 year college in Education. Preferred learning style Written and Visual Currently enrolled in educational program? No Interested in further educational program? Yes Educational Interests/Skills Pt would like to take Faroese classes and finish her degree in Education. 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 No Meaningful activities eat out, outdoor activities, listen to music. Financial Situation Describe current financial situation Occasional struggle Financial assistance? None Service Service? No Mental Health and Addiction Treatment Current/Past substance abuse? No Comments Alcohol: Social 1-2 x month. 1 beer. Nicotine: None Cannabis: none. Current/Past addictive behavior concerns? No Psychiatric history The patient reports no prior history of mental health treatment or counseling. She denies any previous psychiatric crises or inpatient admissions. There is no past or current history of suicidal ideation, suicide attempts, self-harm, or thoughts of harm to others. Medical and Physical Health Summary Additional Medical History not covered in history None aditional Sexual History concerns None reported Physical exam in the last year? Yes Pain Screening Current pain? Yes Pain in the last few months? Yes Comments Back pain. Medications Is the patient compliant with medications? Yes Does the patient have Menard Guardian in place? Not applicable Does the patient use complimentary health approaches? No Trauma/Abuse History History of trauma? No Questionnaires PHQ-9 Over the last 2 weeks, how often have you been bothered by any of the following problems? 1. Little interest or pleasure in doing things: several days 2. Feeling down, depressed, or hopeless: several days 3. Trouble falling or staying asleep, or sleeping too much: not at all 4. Feeling tired or having little energy: more than half the days 5. Poor appetite or overeating: not at all 6. Feeling bad about yourself - or that you are a failure or have let yourself or your family down: not at all 7. Trouble concentrating on things, such as reading the newspaper or watching television: more than half the days 8. Moving or speaking so slowly that other people could have noticed. Or the opposite - being so fidgety or restless that you have been moving around a lot more than usual: not at all 9. Thoughts that you would be better off or of hurting yourself in some way: not at all Total score: 6 Depression Screening Interpretation: Positive (From new Pt pack, new one will be administered at next visit. ) Depression Screening Done: Yes Source: Developed by Drs. Bao Ho, Sheryl Torres, Carlos Alexandre and colleagues, with an educational lissy from [employer]. Binge Eating Scale Group 1 A. I don't feel self-conscious about my wt. or body size when I'm with others. B. I feel concerned about how I look to others, but it normally does not make me fell disappointed with myself C. I do get self-conscious about my appearance and wt. which makes me feel disappointed in myself. D. I feel very self-conscious about my wt. and frequently I feel intense shame and disgust for myself. I try to avoid social contacts because of my self-consciousness. Response Group 1: C Group 2 A. I don't have any difficulty eating slowly in the proper manner. B. Although I seem to gobble down foods, I don't end up feeling stuffed because of eating to much. C. At times, I tend to eat quickly and then, I feel uncomfortably full afterwards. D. I have the habit of bolting down my food, without really chewing it. When this happens I usually feel uncomfortably stuffed because I've eaten to much. Response Group 2: C Group 3 A. I feel capable to control my eating urges when I want to. B. I feel like I have failed to control my eating more than the average person. C. I feel utterly helpless when it comes to feeling in control of my eating urges. D. Because I feel so helpless about controlling my eating I have become very desperate about trying to get control. Response Group 3: A Group 4 A. I don't have the habit of eating when I'm bored. B. I sometimes eat when I'm bored, but often I'm able to get busy and get my mind off food. C. I have a regular habit of eating when I'm bored, but occasionally, I can use some other activity to get my mind off eating. D. I have a strong habit of eating when I'm bored. Nothing seems to help me breath the habit. Response Group 4: B Group 5 A. I'm usually physically hungry when I eat something. B. Occasionally, I eat something on impulse even though I really am not hungry. C. I have the regular habit of eating foods, that I might not really enjoy, to satisfy a hungry feeling even though physically, I don't need the food. D. Although I'm not physically hungry, I get a hungry feeling in my mouth that only seems to be satisfied when I eat a food, like sandwich, that fills my mouth. Sometimes, when I eat the food to satisfy my mouth hunger, I then spit the food out so I won't gain weight. Response Group 5: A Group 6 A. I don't feel any guilt or self-hate after I overeat. B. After I overeat, occasionally I feel guilt or self-hate. C. Almost all the time I experience strong guilt or self-hate after I overeat. Response Group 6: B Group 7 A. I don't lose total control of my eating when dieting even after periods when I overeat. B. Sometimes when I eat a forbidden food on a diet, I feel like I blew it and eat even more. C. Frequently, I have the habit of saying to myself, I've blown it now, why not go all the way, when I overeat on a diet. When that happens I eat more. D. I have a regular habit of starting a strict diets for myself but I break the diets by going on an eating binge. My life seems to be either a feast or famine. Response Group 7: A Group 10 A. I usually am able to stop eating when I want to. I know when enough is enough. B. Every so often, I experience a compulsion to eat which I can't seem to control. C. Frequently, I experience strong urges to eat which I seem unable to control, but at other times I can control my eating urges. D. I feel incapable of controlling urges to eat. I have a fear of not being able to stop eating voluntarily. Response Group 10: A Group 13 A. I eat three meals a day with only an occasional between meal snack. B. I eat 3 meals a day, but I also normally snack between meals. C. When I am snacking heavily, I get in the habit of skipping regular meals. D. There are regular periods when I seem to be continually eating, with no planned meals. Response Group 13: A Group 14 A. I don't think much about trying to control unwanted eating urges. B. At least some of the time, I feel my thoughts are pre-occupied with trying to control my eating urges. C. I feel that frequently I spend much time thinking about how much I ate or about trying not to eat anymore. D. It seems to me that most of my waking hours are pre-occupied by thoughts about eating or not eating. I feel like I'm constantly struggling not to eat. Response Group 14: A Group 15 A. I don't think about food a great deal. B. I have strong craving for food but they last only for brief periods of time. C. I have days when I can't seem to think about anything else but food. D. Most of my days seem to be pre-occupied with thoughts about food. I feel like I live to eat. Response Group 15: B Group 16 A. I usually know whether or not I'm physically hungry. I take the right portion of food to satisfy me. B. Occasionally, I feel uncertain about knowing whether or not I'm physically hungry. A these times it's hard to know how much food I should take to satisfy me. C. Even though I might know how many calories I should eat, I don't have any idea what is a normal amount of food for me. Response Group 16: B Binge Eating Score: 8 (Pt missed Items 8,9,11,12. will finish at next visit. ) Score less than 17 Minimal Risk Score between 18-26 Moderate Risk Score between 27-46 High Risk Assessment & Plan Assessment & Plan (1) Adjustment disorder: Code(s): F43.20 - Adjustment disorder, unspecified Qualifiers: Adjustment disorder type: unspecified type Qualified Code(s): F43.20 - Adjustment disorder, unspecified (2) Pre-bariatric surgery psychological evaluation: Code(s): Z71.89 - Other specified counseling Plan The patient was not cleared today as the assessment was not completed. The patient will return in 2-4 weeks to continue the evaluation. Next appointment: 12/31/2024 at 1pm, video. Telehealth Telehealth Telehealth Platform: [facility] Location of provider rendering services: practice address Location of patient: address on file Patient Identification confirmed using: Name, : Yes Telehealth method: video Patient verbally consented to treatment: Yes Patient verbally consented to billing insurance company: Yes Patient informed of any privacy concerns related to visit: Yes Minutes spent on Phone/Video with Pt.: 50 Coding Level of Care Code New Pt Tele Psy Diag Eval (32515) Patient Type New Diagnoses Adjustment disorder, unspecified type F43.20 Adjustment disorder type: unspecified type Pre-bariatric surgery psychological evaluation Z71.89 Time Spent (min) 50
--- OUTSIDE RECORDS SUMMARY | 2024-12-15 12:11 | XMS_ITS | Patient Health Record ---
Author Organization [facility] Address [address] [place] [address] Care Team Providers Care Supervisor Metal Placing Name Role Phone NO, PCP Primary Care Provider [facility] Unavailable [phone] [facility] Unavailable [phone] Reason For Referral No Information Plan Of Treatment No Information Insurance Providers Payer Name Payer Address Payer Phone Subscriber Number Group Number Insured Name Patient Relationship to Insured Coverage Start Date Coverage End Date [place] Limited [address] [place], [place] [id number] Indu Reyes Self - patient is the insured 5
--- OUTSIDE RECORDS SUMMARY | 2024-12-15 12:11 | XMS_ITS | Clinical Summary ---
Author Organization [employer] Address [address] [facility] 7t [place] [address] Care Team Providers Care Evaluation Manager Name Role Phone GilbertMarleni Primary Care Provider Allergies No known active [...] Polycystic ovarian syndrome 08/02/2024 BMI 40.0-44.9, adult ([facility]) 08/02/2024 Encounters Date Type Department Care Team [...] 08/02/2024 Tobacco Screening 08/02/2025 08/02/2024 Lipid Panel 11/15/2029 11/15/2024, 08/05/2024 Zoster Vaccines (1 of 2) [...] Procedure Name Priority Date/Time Associated Diagnosis Comments HEMATOXYLIN AND EOSIN STAIN Routine 12/02/2024 3:01 PM EDT HCG, QL, URINE Routine 12/02/2024 11:47 AM EDT XR CHEST 2 VIEWS Routine 11/15/2024 10:4 9 AM EDT VITAMIN B1 Routine 11/15/2024 10:19 AM EDT ZINC Routine 11/15/2024 10:19 AM EDT VITAMIN A Routine 11/15/2024 10:19 AM EDT VITAMIN B12/FOLATE, [...] adult Polycystic ovarian syndrome BMI 40.0-44.9, adult ([facility]) from Last 3 Months or Most Recently Relevant to Health Maintenance Results * Hematoxylin and Eosin Stain (12/02/2024 3:01 PM EDT) 12/02/2024 3:01 PM EDT 12/03/2024 8:17 AM EDT [facility] LABS - 12/07/2024 6:12 PM EDT ----- ------- Name: Indu Reyes Age/Sex: 29/F : 1995 Unit#: [id number] Attend Dr: Al Deleon MD Re12/02/24 [place] [facility] [place]: [facility] Disch: ----- ------- SPEC : [id number] RECD: 12/03/24 STATUS: ABRAM CORNEJO NUM: [id number] ABBIE: 12/02/241501 [facility] DR: Al Deleon MD ENTERED: 12/03/24 SP TYPE: Surgical OTHR DR: Marleni Hunt DO ORDERED: HE Stain/9, Gross Micro L4/4, IHC/2, Special st. 2/3, H. pylori/2, AB/PAS/3 Diagnosis A. Stomach, antrum, biopsy: Antral-type and oxyntic mucosa with mild chronic inactive inflammation; no Helicobacter organisms seen. B. Stomach, fundus, biopsy: Oxyntic mucosa with mild chronic inactive inflammation; no Helicobacter organisms seen. C. EG junction, biopsy: - Cardiofundic-type mucosa with mild chronic inactive inflammation; no intestinal metaplasia seen. - Squamous epithelium within normal limits. D. Esophagus, biopsy: Squamous epithelium within normal limits; no inflammation seen. Clinical History Pre-Op Dx: Obesity Post-Op Dx: Normal EGD Microscopic Description A-D. Microscopic sections examined. No metaplastic changes are seen, supported by AB/PAS stains (A, B and C); no Helicobacter organisms are seen, supported by H. pylori immunostain (A and B). Material Received A. Antrum bx B. Fundus bx C. EG junction bx D. Esophagus bx Gross Description Received in 4 parts. A. Received in formalin labeled antrum biopsy is a fragment of bazzi-white soft tissue measuring 0.3 cm in greatest dimension which is wrapped in lens paper and entirely submitted for microscopic examination, 1 piece in cassette A. B. Received in formalin labeled fundus biopsy is a fragment of bazzi-white soft tissue measuring 0.4 cm in greatest dimension which is wrapped in lens paper and entirely submitted for microscopic examination, 1 piece in cassette B. CONTINUED ON NEXT PAGE ----- ------- Name: NielsenIndu Ross Age/Sex: 29/F : 1995 [facility]#: [id number] Unit#: [id number] Attend Dr: Al Deleon MD Re12/02/24 Status: [facility] Location: [facility] Disch: ----- ------- SPEC : [id number] RECD: 12/03/24 STATUS: ABRAM CORNEJO NUM: [id number] ABBIE: 12/02/[address] [facility] [address]: Al Deleon MD ENTERED: 12/03/24 SP TYPE: Surgical OTHR DR: Marleni Hunt DO ORDERED: HE Stain/9, Gross Micro L4/4, IHC/2, Special st. 2/3, H. pylori/2, AB/PAS/3 Gross Description (Continued) C. Received in formalin labeled EG junction biopsy are 2 fragments of bazzi-white soft tissue measuring 0.3 and 0.4 cm in greatest dimension which are wrapped in lens paper and entirely submitted for microscopic examination, 2 pieces in cassette C. D. Received in formalin labeled esophagus biopsy are 2 fragments of translucent, white soft tissue, each measuring 0.3 cm in greatest dimension which are wrapped in lens paper and entirely submitted for microscopic examination, 2 pieces in cassette D. ([facility]) Special studies ordered and performed: Immunostain for H. pylori on A and B; AB/PAS stains on A, B and C IHC S/NG Disclaimer NOTE: Unless otherwise stated, all tissue is formalin-fixed and paraffin-embedded. Some or all of the immunohistochemical tests reported herein may have been developed and their performance characteristics determined by [facility]. They have not been cleared or approved by the U.S. Food and Drug Administration (FDA). However, the FDA has determined that such clearance or approval is not necessary. This laboratory is certified under the Clinical Laboratory Improvement Amendments of 1988 (CLIA) as qualified to perform high complexity clinical laboratory testing. Copies To: Marleni Hunt DO [address] [id number] Al Deleon MD [facility] Weight Management Program [address] [place] [id number] ----- ------- Signed (signature on file) Mark Anthony Seo MD 12/07/241811 ----- ------- END OF REPORT Generic External Data Provider LAB BLOOD ORDERAB LES Final Result Performing Organization Address [facility] de Phone Number [facility] [address] [place] [phone] * HCG, Qualitative, Urine (12/02/2024 11:47 AM EDT) Urine NEGATIVE NEGATIVE [facility] Comment:This test was develo ped to detect early . Falsenegative results may occur after the 5th - 7th week ofpregnancy when using this test method. If clinicallyindicated, consider a serum hCG. 12/02/2024 11:4 7 AM EDT 12/02/2024 11:58 AM EDT Generic External Data Provider LAB URINE ORDERAB LES Final Result Performing Organization Address [facility] de Phone Number [facility] [address] [place] [phone] * XR Chest 2 Views (11/15/2024 10:49 AM EDT) Anatomical Region Laterality Modality Chest Radiographic Dionna ging 11/15/2024 10:4 9 AM EDT Narrative 11/15/2024 10:58 AM EDT [address] [address] XRay Report Signed Patient: Indu Reyes MR#: [id number] : 1995 Acct:[id number] Age/Sex: 29 / F ADM Date: 11/15/24 Loc: HO.LAB Attending Dr: Al Deleon MD Ordering Physician: Al Deleon MD Date of Service: 11/15/24 Procedure(s): XR chest 2V Accession Number(s): [id number] cc: Marleni Hunt DO; Al Deleon MD [...] 11/15/24 1056 DD/ 1049 TD/TT: 11/15/24 1053 Chief Unit Forester: Procedure Note Donotuseinterpreter, Image - 11/15/[address] [address] XRay Report Signed Patient: Indu Reyes MR#: [id number] : 1995Acct:[id number] Age/Sex: 29 / FADM Date: 11/15/24 Loc: HO.LAB Attending Dr: Al Deleon MD Ordering Physician: Al Deleon MD Date of Service: 11/15/24 Procedure(s): XR chest 2V Accession Number(s): [id number] cc: Marleni Hunt Ioannis MD Reason for Exam: E66.01 - Morbid [...] 11/15/24 1056 DD/ 1049 TD/TT: 11/15/24 1053 Chief Unit Forester: [facility] External Provider IMG XR PROCEDURES Edited Result - Final * Vitamin D, 25-Hydroxy, Total, Immunoassay (11/15/2024 10:19 AM EDT) Vitamin D 25-OH Total 41.0 >30 ng/mL [facility] Comment: Health Based Reference Values*< 20 ng/mL Llpokejmc95-74 ng/mL Insufficient> 30 ng/mL Sufficient*Jessica BLANCO. N [...] ORDERAB LES Final Result Performing Organization Address [facility] Co de Phone Number [facility] [address] [place] [phone] * (ABNORMAL) Vitamin B12 (Cobalamin) and Folate Panel, Serum (11/15/2024 10:19 AM EDT) Vitamin B12 168(L) 200 - 900 pg/mL [facility] Comment:NORMAL 200-900 PG/ML INDETERMINATE 160-199 PG/ML DEFICIENT < 160 PG/ML Folate 12.8 > or = 4.0 ng/mL [facility] Comment:Reference Values:> o r = 4.0 ng/mL< 4.0 ng/mL suggests folate deficiency Methotrexate, aminopterin and folinic acid(leucovorin) are chemotherapeutic agents whose molecularstructures are similar to folate; therefore, the Architectfolate assay cannot be used for patients using these drugs. 11/15/2024 10:1 9 AM EDT 11/15/2024 10:19 AM EDT Generic External Data Provider LAB BLOOD ORDERAB LES Final Result Performing Organization Address [facility] Co de Phone Number [facility] [address] [place] [phone] * TSH with Reflex to Free T4 (11/15/2024 10:19 AM EDT) Pathologist [facility] TSH reflex Free T4 1.11 0.32 - 4.0 uIU/mL [facility] 11/15/2024 10:1 9 AM EDT 11/15/2024 10:19 AM EDT us Generic External Data Provider LAB BLOOD ORDERAB LES Final Result [facility] [address] [place], [place] [phone] * CBC auto differential (11/15/2024 10:19 AM EDT) White Blood Count 7.2 4.8 - 10.8 X10*3/uL [facility] Red Blood Count 4.37 4.20 - 5.50 X10*6/uL [facility] Hemoglobin 12.2 12.0 - 16.0 g/dl [facility] Hematocrit 37.6 37.0 - 47.0 % [facility] Mean Corpuscular Volume 86.0 80.0 - 98.0 fL [facility] Mean Corpuscular Hemoglobin 27.9 27.0 - 33.0 pg [facility] Mean Corpuscular HGB Conc 32.4 31.0 - 35.0 g/dl [facility] Red Cell Distribution Width 13.4 11.0 - 16.0 % [facility] Platelet Count 309 160 - 400 X10*3/uL [facility] Mean Platelet Volume 11.0 9.4 - 12.3 fL [facility] Neutrophils Percent Auto 50.3 45 - 73 % [facility] Imm Gran Pct Auto 0.3 0.0 - 0.4 % [facility] Lymphocytes Percent Auto 39.9 20 - 40 % [facility] Monocytes Percent Auto 7.3 2 - 11 % [facility] Eosinophils Percent Auto 1.4 0 - 4 % [facility] Basophils Percent Auto 0.8 0 - 2 % [facility] NRBC Pct Auto 0.0 0.0 - 0.2 /100WBC [facility] Neutrophils Absolute Auto 3.6 2.0 - 8.3 x10*3/uL [facility] Imm Gran Abs Auto 0.02 0.00 - 0.03 X10*3/uL [facility] Lymphocytes Absolute Auto 2.9 1.2 - 4.9 X10*3/uL [facility] Monocytes Absolute Auto 0.5 0.1 - 1.2 X10*3/uL [facility] Eosinophils Absolute Auto 0.1 0.0 - 0.4 X10*3/uL [facility] Basophils Absolute Auto 0.1 0.0 - 0.2 X10*3/uL [facility] NRBC Abs Auto 0.000 0.0 - 0.012 X10*3/uL [facility] 11/15/2024 10:1 9 AM EDT 11/15/2024 10:19 AM EDT Generic External Data Provider LAB BLOOD ORDERAB LES Final Result Performing Organization Address [facility] Co de Phone Number [facility] [address] [place] [phone] * Iron And Total Iron Binding Capacity (11/15/2024 10:19 AM EDT) Iron 100 30 - 160 mcg/dL [facility] Total Iron Binding Capacity 267 228 - 428 mcg/dL [facility] Percent Iron Saturation 37 15 - 50 % [facility] Unsaturated Iron Binding 167 ug/dL [facility] 11/15/2024 10:1 9 AM EDT 11/15/2024 10:19 AM EDT Generic External Data Provider LAB BLOOD ORDERAB LES Final Result Performing Organization Address [facility] Co de Phone Number [facility] [address] [place] [phone] * Insulin (11/15/2024 10:19 AM EDT) Insulin 13 2 - 29 uU/mL [facility] Comment:This test was perfor med [...] ORDERAB LES Final Result Performing Organization Address [facility] Co de Phone Number [facility] [address] [place] [phone] * Zinc (11/15/2024 10:19 AM EDT) Zinc 71 60 - 130 mcg/dL [facility] Comment:This test was develo ped and its analytical performancecharacteristics have been determined by [employer] [place], [place]. It hasnot been cleared or approved by the U.S. Food and DrugAdministration. This assay has been validated pursuantto the CLIA regulations and is used for clinicalpurposes.THIS TEST WAS PERFORMED AT:[id number] [place] [address]MWNLATLCASE GARDUNO MD,PHD 11/15/2024 10:1 9 AM EDT 11/15/2024 10:19 AM EDT Generic External Data Provider LAB BLOOD ORDERAB LES Final Result Performing Organization Address [facility] de Phone Number [facility] [address] [place] [phone] * Vitamin A (11/15/2024 10:19 AM EDT) Vitamin A (Retinol) 55 38 - 98 mcg/dL [facility] Comment:Vitamin supplementat ion within 24 hours prior toblood draw may affect the accuracy of the results.This test was developed and its analytical performancecharacteristics have been determined by [employer] [place], [place]. It hasnot been cleared or approved by the U.S. Food and DrugAdministration. This assay has been validated pursuantto the CLIA regulations and is used for clinicalpurposes.THIS TEST WAS PERFORMED AT:[employer] [id number] [place] [id number] GARDUNO MD,PHD 11/15/2024 10:1 9 AM EDT 11/15/2024 10:19 AM EDT Generic External Data Provider LAB BLOOD ORDERAB LES Final Result Performing Organization Address [facility] Co de Phone Number [facility] [address] [place] [phone] * (ABNORMAL) C-reactive Protein (11/15/2024 10:19 AM EDT) C Reactive Protein 1.48(H) < or = 0.50 mg/dL [facility] 11/15/2024 10:1 9 AM EDT 11/15/2024 10:19 AM EDT Generic External Data Provider LAB BLOOD ORDERAB LES Final Result Performing Organization Address [facility] de Phone Number [facility] [address] [place] [phone] * Vitamin B1 (11/15/2024 10:19 AM EDT) Vitamin B1 8 8 - 30 nmol/L [facility] Comment:Vitamin supplementat ion within 24 hours prior toblood draw may affect the accuracy of the results.This test was developed and its analytical performancecharacteristics have been determined by [employer], [place]. It hasnot been cleared or approved by the U.S. Food and DrugAdministration. This assay has been validated pursuantto the CLIA regulations and is used for clinicalpurposes.THIS TEST WAS PERFORMED AT:[employer] [id number] [place] [address]BPZQYFFCASE GARDUNO MD,PHD 11/15/2024 10:1 9 AM EDT 11/15/2024 10:19 AM EDT us Generic External Data Provider LAB BLOOD ORDERAB LES Final Result Performing Organization Address [facility] de Phone Number [facility] [address] [place] [phone] * Hemoglobin A1c (11/15/2024 10:19 AM EDT) Hemoglobin A1c 5.4 <6.0 % [facility] Comment:Hemoglobin A1C Refer ence Range Adults: 4.8 - 6.0 % Non diabetic: < 6.0 % Goal: < 7.0 %Additional Action Suggested: > 8.0 %Note: Hemoglobin A1c results are invalid for patients with abnormal amounts of HbF. Blood transfusions may impact the HbA1c concentration in the patient sample. Estimated Average Glucose 108 mg/dL [facility] Comment:eAG = Estimated ave rage glucose which is %A1C expressed asaverage glucose, using the formula of the F1G-MffyvtoHhkxlmd Glucose study (ADAG), Diabetes Care, Vol.31,#8,Oct. 2007 11/15/2024 10:1 9 AM EDT 11/15/2024 10:19 AM EDT us Generic External Data Provider LAB BLOOD ORDERAB LES Final Result Performing Organization Address [facility] de Phone Number [facility] [address] [place] [phone] * (ABNORMAL) Ferritin (11/15/2024 10:19 AM EDT) Ferritin 142(H) 10 - 122 ng/mL [facility] 11/15/2024 10:1 9 AM EDT 11/15/2024 10:19 AM EDT us Generic External Data Provider LAB BLOOD ORDERAB LES Final Result Performing Organization Address [facility] Co de Phone Number [facility] [address] [place] [phone] * (ABNORMAL) Lipid Panel, Standard (11/15/2024 10:19 AM EDT) Triglycerides 73 <150 mg/dL [facility] Comment:Desirable Triglyceri de: less than 150 mg/dLBorderline High Triglyceride 150-199 mg/dLHigh Triglyceride: 200-499 mg/dLVery High Triglyceride: greater than or equal to 5OO mg/dL Cholesterol 154 <200 mg/dL [facility] Comment:Desirable Cholestero l: less than 200 mg/dLBorderline High Cholesterol: 200-239 mg/dLHigh Cholesterol: greater than 239 mg/dL LDL Cholesterol Calculated 104(H) <100 mg/dL [facility] Comment:Desirable LDL: less than 100 mg/dLNear Optimal/Above Optimal LDL: 110- 129 mg/dLBorderline High LDL: 130-159 mg/dLHigh LDL: 160-189 mg/dLVery High LDL: greater than or equal to 190 mg/dL HDL Cholesterol 36(L) >40 mg/dL [facility] Comment:Desirable HDL: great er than 40 mg/dL Note: This HDL assay may give artificially low results in patients with liver disease. 11/15/2024 10:1 9 AM EDT 11/15/2024 10:19 AM EDT Generic External Data Provider LAB BLOOD ORDERAB LES Final Result Performing Organization Address [facility]ZIP Co de Phone Number [facility] [address] [place] [phone] * (ABNORMAL) Comprehensive Metabolic Panel (11/15/2024 10:19 AM EDT) Sodium 138 135 - 145 mmol/L [facility] Potassium 4.7 3.3 - 5.1 mmol/L [facility] Chloride 105 96 - 108 mmol/L [facility] Carbon Dioxide 26 22 - 29 mmol/L [facility] Anion Gap 12 12 - 20 [facility] Urea Nitrogen (BUN) 12 9 - 16 mg/dL [facility] Creatinine, Serum 0.77 0.5 - 1.4 mg/dL [facility] Estimated Glomerular Filt Rate >60 [facility] Comment:Chronic Kidney Disea se: Estimated GFR < 60 mL/min/1.64v2Byomad Kidney Disease: Estimated GFR < 15 mL/min/1.73m2 Glucose 90 60 - 115 mg/dL [facility] Calcium 9.4 8.4 - 10.2 mg/dL [facility] Bilirubin, Total 0.4 0.0 - 1.0 mg/dL [facility] Aspartate Amino Transferase 29 5 - 31 U/L [facility] Alanine Aminotransferase 34(H) 0 - 31 U/L [facility] Total Protein 7.9 6.5 - 8.0 g/dL [facility] Albumin Level 4.3 3.5 - 5.0 g/dL [facility] Alkaline Phosphatase 60 39 - 117 U/L [facility] 11/15/2024 10:1 9 AM EDT 11/15/2024 10:19 AM EDT us Generic External Data Provider LAB BLOOD ORDERAB LES Final Result [facility] [address] [place] [phone] * Hepatitis C Antibody with Reflex to HCV, RNA, Quantitative, Real-Time PCR (08/05/2024 9:33 AM EDT) Hepatitis C Antibody Nonreactive Nonreactive [facility] Comment:Antibodies to HCV no t detected; does not exclude early acuteHCV infection. Blood Venous blood specimen / Unknown 08/05/2024 9:33 AM EDT 08/05/2024 11:27 AM EDT us Marleni Hunt DO LAB BLOOD ORDERABLES Final R esult [facility] [address] [place] [phone] * HIV-1/2 Antigen and Antibodies, Fourth Generation, with Reflexes (08/05/2024 9:33 AM EDT) HIV AB/AG Nonreactive Nonreactive [facility] Comment:HIV-1 p24 Ag and/or HIV-1/HIV-2 Ab not detected.A test result that is nonreactive does not exclude thepossibility of exposure to or infection with HIV-1 and/orHIV-2. Nonreactive results in this assay for individualswith prior exposure to HIV-1 and/or HIV-2 may be due toantigen and antibody levels that are below the limit ofdetection of this assay.The [employer] HIV Ag/Ab Combo assay result andsupplemental assay results should be interpreted inconjunction with the patient's clinical presentation,history and other laboratory results. If the results areinconsistent with clinical evidence, additional testing issuggested to confirm the result. Blood Venous blood specimen / Unknown 08/05/2024 9:33 AM EDT 08/05/2024 11:27 AM EDT us Marleni Hunt DO LAB BLOOD ORDERABLES Final R esult [facility] [address] [place] [phone] from Last 3 Months or Most Recently Relevant to Health Maintenance Insurance [facility] Care Teams Evaluation Manager Relationship Specialty Start Date End Date Marleni Hunt DO [address] [place] [address] PCP - General Family Medicine 08/02/24
== END 2024-12-15 11:07 | disposition home or self-care (01) ==
LOC: HO.HBST 10:19
PROVIDERS: PCP Family Medicine; Visit Provider Counselor Mental Health
DX: F43.20 Adjustment disorder, unspecified (principal); Z71.89 Other specified counseling
CPT/HCPCS: 90791

== ENCOUNTER 2025-01-17 14:25 | Outpatient (AMB) | payer OTHER, SELFPAY ==
--- OUTSIDE RECORDS SUMMARY | 2024-08-27 08:30 | XMS_ITS ---
Author Organization [facility] Address [address] [place] [phone] Care Team Providers Care Heel Room Supervisor Name Role Phone NO, PCP Primary Care Provider [phone] SHS, CHW Unavailable [phone] SHS, Nursing Unavailable [phone] REASON FOR VISIT Phone: Intake Encounters Encounter Location Date Provider Diagnosis [address] [address] 08/27/2024 Nursing [facility] Plan Of Treatment No Information Progress Notes * Corrina BIGGS y CDOB:1995 (29 yo F)Acc No.[id number]:08/27/2024 Progress Notes Patient: Kathy Indu SANDHU Provider: Mohsen LACEY :1995 A ge:28 Y S ex:Female Date:08/27/2024 Address:[address] [place] [address] Nemesio Johnston [place]-[id number] Pcp:PCP NO Subjective: * Chief Complaints: * 1 . Phone: Intake. * Medical History: Objective: * Vitals: Assessment: Plan: * Treatment: * Images: Billing Information: * Visit Code: * Procedure Codes: * Electronic signature of Bk gaytan [facility] on 01/18/2025 at 04:31 AM EST Sign off status: Pending * Provider: Mohsen coulter [facility] Date: 08/27/2024 Generated for Zach capps/Gabe/Nanette on: 03/20/2024 04:31 AM EST
--- NOTE | 2025-01-17 14:10 | A.OFFWM_ITS ---
Intake Intake Visit Reasons: TV BH Intake Part 2 Allergies No Known Allergies Allergy (Verified 12/02/24 11:56) PFSH Medical History Back pain PCOS (polycystic ovarian syndrome) Morbid obesity Surgical History Hx of dilation and curettage Family History Mother No problems noted. Father Malignant neoplasm skin of leg Social History Are you a primary manager wound care to a significant other at home: No Do you presently have visiting nurse or other home services: No Alcohol intake: never Patient Tobacco Use Status: Never used Tobacco Behavioral Health Assessment Weight Management Therapy Therapy Notes Details The patient is a 29-year-old female, self-referred, presenting for her second visit to complete a behavioral health assessment as part of a surgical weight loss program. She reports a longstanding history of obesity and has made multiple attempts at dieting and other weight loss methods without significant or sustained success. Her primary motivation for weight loss is to improve her fertility, as obesity has worsened her hormonal imbalance and PCOS-related symptoms, contributing to infertility. The patient notes that adherence to her weight loss plan can be challenging on certain days due to work-related demands. She expresses some uncertainty about proceeding with surgery and would like to discuss additional medical weight loss options with the surgeon before making a final decision. Presenting Concerns Referral Source WMP-Provider Reason for referral Completion of behavioral health assessment as part of process for weight-loss surgery. Precipitating Event Obesity. Living Situation Current Living Situation Rent At risk of losing current housing? No Satisfied with current living situation? Yes Comments PT lives with her . Food/Weight/Diet Expectations of change Pt started the program on 11/05/2024 at 238Lbs, and her recent weight on 12/14/2024 was 228Lbs. Initial goal is to lose 10% of your weight before surgery, which is about 24lbs. Ultimate weight goal: 214lbs before surgery. PT reports her recent weight was 226Lbs, she is aware that her weight loss has been slow as she has not been exercising as she should due to transportation issues. Patient wants to be at her healthy weight. PT is implementing the following: Current meal plan: 2 protein shakes, 2 protein bars, and one meal per day. Exercise plan: treadmill, 35 minutes minimum, elliptical 25 minutes for 300 [place] at day. 5 days at week. scale: yes Communication with the provider: on Fridays. History/Relationship with food Example of meals before starting the program: Breakfast: 8am, scrambled eggs, potatoes, and juice. Lunch: juice and a fruit (apple or banana) - 2x week [employer] or chipotle. Dinner: 8 pm- Rice, beans, pork, salad. or boiled plantains w/ fried salami. Also cooked different stews. Snacks: None. Drinks/Liquids: Coffee: 2 with sugar. Juice: 2 cups. Soda: 1/2 glass at day. Energy drinks: none. Alcohol: none. History/Relationship with weight She was at a normal weight in childhood. She was around 140-150 at age 18 In the last 10 years, the patient's Lowest weight was 150Lbs and highest 240Lbs. PT reports she started major gained weight in 2019 when developed PCOS. History/Relationship with dieting Gym membership. self-diets. Ketto Binge Eating Do you frequently eat large amounts of food in short periods of time, not feeling physically hungry? No Do you feel out of control when you eat a large amount of food in a short period of time? No Do you eat large amounts of food rapidly and typically alone? No Night Eating Do you wake up at least once during the night to eat? No If you wake up in the night, do you find that it is necessary to eat something in order to fall back asleep? No Do you have little or no appetite in the morning and feel very hungry in the evening, often overeating between dinner and when you go to bed? No Social History Family history and relationship PT is 7 years ago. Parents are alive, she has 2 siblings alive and 1 1 year ago. PT reports a good childhood. Her parents when she was 8 years old. PT reports all of her inmediate family are in , [place] in the [place] she has her busband an aunt in [place] and some of her 's family. She is very close to her family and they talk every day. Parental/Familial package handler obligations None reported. Developmental history and status None reported. Currently WNL. Social support , parents. Community support None. Congregational/Spirituality Mandaeism. Cultural/Ethnic information PT is from [facility], she moved to the 10 months ago. Her main language is Bahraini. Legal Involvement and History Current or historical involvement with the legal system? None reported. Education Highest grade completed HS and 1 year college in Education. Preferred learning style Written and Visual Currently enrolled in educational program? No Interested in further educational program? Yes Educational Interests/Skills Pt would like to take Slovenian classes and finish her degree in Education. 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 No Meaningful activities eat out, outdoor activities, listen to music. Financial Situation Describe current financial situation Occasional struggle Financial assistance? None Service Service? No Mental Health and Addiction Treatment Current/Past substance abuse? No Comments Alcohol: Social 1-2 x month. 1 beer. Nicotine: None Cannabis: none. Current/Past addictive behavior concerns? No Psychiatric history The patient reports no prior history of mental health treatment or counseling. She denies any previous psychiatric crises or inpatient admissions. There is no past or current history of suicidal ideation, suicide attempts, self-harm, or thoughts of harm to others. Medical and Physical Health Summary Additional Medical History not covered in history None aditional Sexual History concerns None reported Physical exam in the last year? Yes Pain Screening Current pain? Yes Pain in the last few months? Yes Comments Back pain. Medications Is the patient compliant with medications? Yes Does the patient have Menard Guardian in place? Not applicable Does the patient use complimentary health approaches? No Trauma/Abuse History History of trauma? No Questionnaires PHQ-9 Over the last 2 weeks, how often have you been bothered by any of the following problems? 1. Little interest or pleasure in doing things: not at all 2. Feeling down, depressed, or hopeless: not at all 3. Trouble falling or staying asleep, or sleeping too much: not at all 4. Feeling tired or having little energy: several days 5. Poor appetite or overeating: not at all 6. Feeling bad about yourself - or that you are a failure or have let yourself or your family down: not at all 7. Trouble concentrating on things, such as reading the newspaper or watching television: not at all 8. Moving or speaking so slowly that other people could have noticed. Or the opposite - being so fidgety or restless that you have been moving around a lot more than usual: not at all 9. Thoughts that you would be better off or of hurting yourself in some way: not at all Total score: 1 Depression Screening Interpretation: Negative Depression Screening Done: Yes 47828 - PHQ-9 Billing: Yes Source: Developed by Drs. Bao Ho, Sheryl Torres, Carlos Alexandre and colleagues, with an educational lissy from [employer]. Binge Eating Scale Group 1 A. I don't feel self-conscious about my wt. or body size when I'm with others. B. I feel concerned about how I look to others, but it normally does not make me fell disappointed with myself C. I do get self-conscious about my appearance and wt. which makes me feel disappointed in myself. D. I feel very self-conscious about my wt. and frequently I feel intense shame and disgust for myself. I try to avoid social contacts because of my self- consciousness. Response Group 1: C Group 2 A. I don't have any difficulty eating slowly in the proper manner. B. Although I seem to gobble down foods, I don't end up feeling stuffed because of eating to much. C. At times, I tend to eat quickly and then, I feel uncomfortably full afterwards. D. I have the habit of bolting down my food, without really chewing it. When this happens I usually feel uncomfortably stuffed because I've eaten to much. Response Group 2: C Group 3 A. I feel capable to control my eating urges when I want to. B. I feel like I have failed to control my eating more than the average person. C. I feel utterly helpless when it comes to feeling in control of my eating urges. D. Because I feel so helpless about controlling my eating I have become very desperate about trying to get control. Response Group 3: A Group 4 A. I don't have the habit of eating when I'm bored. B. I sometimes eat when I'm bored, but often I'm able to get busy and get my mind off food. C. I have a regular habit of eating when I'm bored, but occasionally, I can use some other activity to get my mind off eating. D. I have a strong habit of eating when I'm bored. Nothing seems to help me cherie th the habit. Response Group 4: B Group 5 A. I'm usually physically hungry when I eat something. B. Occasionally, I eat something on impulse even though I really am not hungry. C. I have the regular habit of eating foods, that I might not really enjoy, to satisfy a hungry feeling even though physically, I don't need the food. D. Although I'm not physically hungry, I get a hungry feeling in my mouth that only seems to be satisfied when I eat a food, like sandwich, that fills my mouth. Sometimes, when I eat the food to satisfy my mouth hunger, I then spit the food out so I won't gain weight. Response Group 5: A Group 6 A. I don't feel any guilt or self-hate after I overeat. B. After I overeat, occasionally I feel guilt or self-hate. C. Almost all the time I experience strong guilt or self-hate after I overeat. Response Group 6: B Group 7 A. I don't lose total control of my eating when dieting even after periods when I overeat. B. Sometimes when I eat a forbidden food on a diet, I feel like I blew it and eat even more. C. Frequently, I have the habit of saying to myself, I've blown it now, why not go all the way, when I overeat on a diet. When that happens I eat more. D. I have a regular habit of starting a strict diets for myself but I break the diets by going on an eating binge. My life seems to be either a feast or famine. Response Group 7: A Group 10 A. I usually am able to stop eating when I want to. I know when enough is enough. B. Every so often, I experience a compulsion to eat which I can't seem to control. C. Frequently, I experience strong urges to eat which I seem unable to control, but at other times I can control my eating urges. D. I feel incapable of controlling urges to eat. I have a fear of not being able to stop eating voluntarily. Response Group 10: A Group 13 A. I eat three meals a day with only an occasional between meal snack. B. I eat 3 meals a day, but I also normally snack between meals. C. When I am snacking heavily, I get in the habit of skipping regular meals. D. There are regular periods when I seem to be continually eating, with no planned meals. Response Group 13: A Group 14 A. I don't think much about trying to control unwanted eating urges. B. At least some of the time, I feel my thoughts are pre-occupied with trying to control my eating urges. C. I feel that frequently I spend much time thinking about how much I ate or about trying not to eat anymore. D. It seems to me that most of my waking hours are pre-occupied by thoughts abou t eating or not eating. I feel like I'm constantly struggling not to eat. Response Group 14: A Group 15 A. I don't think about food a great deal. B. I have strong craving for food but they last only for brief periods of time. C. I have days when I can't seem to think about anything else but food. D. Most of my days seem to be pre-occupied with thoughts about food. I feel like I live to eat. Response Group 15: B Group 16 A. I usually know whether or not I'm physically hungry. I take the right portion of food to satisfy me. B. Occasionally, I feel uncertain about knowing whether or not I'm physically hungry. A these times it's hard to know how much food I should take to satisfy me. C. Even though I might know how many calories I should eat, I don't have any idea what is a normal amount of food for me. Response Group 16: B Binge Eating Score: 8 (Pt missed Items 8,9,11,12. will finish at next visit. ) Score less than 17 Minimal Risk Score between 18-26 Moderate Risk Score between 27-46 High Risk Assessment & Plan Assessment & Plan (1) Adjustment disorder: Code(s): F43.20 - Adjustment disorder, unspecified Qualifiers: Adjustment disorder type: unspecified type Qualified Code(s): F43.20 - Adjustment disorder, unspecified (2) Pre-bariatric surgery psychological evaluation: Code(s): Z71.89 - Other specified counseling Plan The patient is cleared from a behavioral health perspective to proceed with bariatric surgery and documentation can be submitted for insurance approval as indicated. The patient will return for a follow-up behavioral health visit in approximately 6?8 weeks for ongoing support, and again at 1?4 weeks postoperatively to monitor psychological adjustment, reinforce coping strategies, and screen for any emerging concerns such as mood changes, adjustment difficulties, or disordered eating patterns. Additional behavioral health support will be provided as needed based on postoperative assessment. Next jeremías: 03/07/25 at 11am, video. Telehealth Telehealth Telehealth Platform: [employer] Location of provider rendering services: other (Home office. [place], [place]) Location of patient: address on file Patient Identification confirmed using: Name, : Yes Telehealth method: video Patient verbally consented to treatment: Yes Patient verbally consented to billing insurance company: Yes Patient informed of any privacy concerns related to visit: Yes Minutes spent on Phone/Video with Pt.: 50 Coding [place] [address] Tele Psytx 45 mins Patient Type Established Diagnoses Adjustment disorder, unspecified type F43.20 Adjustment disorder type: unspecified type Pre-bariatric surgery psychological evaluation Z71.89 Additional Codes PHQ-9 - 97385 - PHQ-9 Billing: Yes ([id number]) Time Spent (min) 50
--- OUTSIDE RECORDS SUMMARY | 2025-01-18 04:32 | XMS_ITS | Patient Health Record ---
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
== END 2025-01-17 14:57 | disposition home or self-care (01) ==
LOC: HO.HBST 14:25
PROVIDERS: PCP Family Medicine; Visit Provider Counselor Mental Health
DX: F43.20 Adjustment disorder, unspecified (principal); Z71.89 Other specified counseling
CPT/HCPCS: 90834